=== PATIENT | male | born 1955 | race Caucasian/White ===

== ENCOUNTER 2016-08-15 10:55 | Inpatient (IN) | payer BC, OTHER ==
[2016-08-15 11:52] LABS: PARTIAL THROMB. TIME 30.2 SEC (22-35); PT-INR 1.8
[2016-08-15 11:55] LABS: BLOOD UREA NITROGEN 45 MG/DL (9-20); CALC CORRECTED 9.8 MG/DL (8.4-10.2); CALCIUM 9.7 MG/DL (8.4-10.2); CALCULATED OSMOLALITY 279 MOs/Kg (270-290); CHLORIDE 99 mEq/L (98-107); GLUCOSE 76 MG/DL (70-99); SODIUM LEVEL 139 mEq/L (137-146); TOTAL PROTEIN 7.5 G/DL (6.3-8.2)
[2016-08-15 12:15] LABS: MPV 9.9 fL (7.4-10.4); SEG NEUTROPHIL 80 % (45-76)
[2016-08-15] MEDS ORDERED: NS 1,000 ML IV ONE ×2 (12:16→14:11)
[2016-08-15 12:57] LABS: CPK TOTAL WITH POSSIBLE MB 71 IU/L (55-170)
[2016-08-15] MEDS ORDERED: Pharmacy Review for Metformin - IV Contrast Given SCH (13:00)
--- NOTE | 2016-08-15 13:11 | EDPRACDOC ---
- General Information Chief Complaint: Generalized Weakness Stated Complaint: VOMITING/ RECTAL BLEED Time Seen by Provider: 08/15/16 12:57 Mode of Arrival: Car Home Medications: Home Medications ANUSOL Suppository 1 supp AL BID #10 supp 07/24/16 Allopurinol [Zyloprim] 100 mg PO DAILY 07/24/16 Atorvastatin Calcium [Lipitor] 40 mg PO DAILY 07/24/16 Clopidogrel Bisulfate [Plavix] 75 mg PO DAILY 07/24/16 Docusate Sodium [Colace] 100 mg PO BID #100 cap 07/24/16 Gabapentin [Neurontin] 300 mg PO BID 07/24/16 Hydrocodone Bit/Acetaminophen [[place] 5-325 Tablet] 1 - 2 tabs PO Q6H PRN Lisinopril [Prinivil] 5 mg PO DAILY 07/24/16 Metformin HCl [Metformin HCl ER] 500 mg PO BID 07/24/16 Allergies/Adverse Reactions: Allergies Allergy/AdvReac Type Severity Reaction Status Date / Time tramadol Allergy Nausea/Vomi Verified 07/24/16 21:07 ting - History of Present Illness Onset: 3 WEEKS HPI: PT PRESENTS WITH PROGRESSIVE JAUNDICE, FATIGUE, WEIGHT LOSS, DARK STOOLS, AND EASY BLEEDING. THIS HAS BEEN PROGRESSING OVER THE LAST FEW WEEKS. ED Past Medical History - History Reviewed Yes Nurses notes reviewed and agree except as marked - Patient Medical History Neurological History: Reports: Cerebrovascular Accident Cardiac History: Reports: Hypertension, Hypercholesterolemia Psychological History: Denies: Depression Systemic History: Reports: Diabetes. Denies: Cancer - Social Medical History Smoking Status: Former smoker Lives In: Home EDM Review of Systems - Review of Systems ROS Negative Except as Marked: Yes All systems reviewed and were negative except as marked Constitutional: Fatigue, Weakness, Weight loss. negative: Fever Nose: negative: Congestion Respiratory: negative: Shortness of Breath Cardiovascular: negative: Chest Pain Gastrointestinal: Nausea. negative: Vomiting Integumentary: Other (JAUNDICE) - Physical Exam Constitutional: Alert Oriented to: Time, Person, Place Last recorded Vital Signs: Last Vital Signs Temp 98.5 F 08/15/16 13:04 Pulse 107 08/15/16 13:04 Resp 20 08/15/16 13:04 BP 121/59 L 08/15/16 13:04 Pulse Ox 94 08/15/16 13:04 Oxygen Pulse Oxygen Saturation 94 O2 Device Room Air Oxygen Flow Rate Fraction of Inspired Oxygen ( FIO2) - HEENT Head: negative: Deformity, Laceration Eye Exam: Scleral Icterus Nose: negative: Congestion, Discharge Neck: negative: Limited ROM - Respiratory/Cardiovascular Respiratory: Normal - CTA. negative: Accessory Muscle Use, Diminished, Tachypnea Cardiovascular: Tachycardia. negative: Bradycardia, Irregular - GI Auscultation: Normal Palpation: Enlarged liver Tenderness: Non tender - Integumentary Skin: Warm, Dry, Jaundice - Neurologic Memory Impaired: Normal Motor Function: Normal Mood Description: Anxious, Appropriate Thought: Coherent Perception: Normal - Results 08/15/16 11:30 08/15/16 11:30 WBC 13.8 xk/uL (3.8-10.8) H 08/15/16 11:30 RBC 4.82 xM/uL (4.70-6.10) 08/15/16 11:30 Hgb 13.9 g/dL (14.0-18.0) L 08/15/16 11:30 Hct 42.5 % (42-52) 08/15/16 11:30 MCV 88 fL (80-94) 08/15/16 11:30 MCH 28.9 pg (27-32) 08/15/16 11:30 MCHC 32.8 g/dl (33-36) L 08/15/16 11:30 RDW 15.1 % (11.5-14.5) H 08/15/16 11:30 Plt Count 221 xk/uL (130-400) 08/15/16 11:30 MPV 9.9 fL (7.4-10.4) 08/15/16 11:30 Neut % (Auto) Cancelled 08/15/16 11:30 Lymph % (Auto) Cancelled 08/15/16 11:30 [place] % (Auto) Cancelled 08/15/16 11:30 Eos % (Auto) Cancelled 08/15/16 11:30 Baso % (Auto) Cancelled 08/15/16 11:30 Absolute Neuts (auto) Cancelled 08/15/16 11:30 Absolute Lymphs (auto) Cancelled 08/15/16 11:30 Seg Neuts % (Manual) 80 % (45-76) H 08/15/16 11:30 Band Neutrophils % 3 % (0-5) 08/15/16 11:30 Lymphocytes % (Manual) 12 % (17-44) L 08/15/16 11:30 Monocytes % (Manual) 5 % (0-10) 08/15/16 11:30 Eosinophils % (Manual) 0 % (0-5) 08/15/16 11:30 Absolute Neutrophils 11.45 xk/uL (1.7-8.2) H 08/15/16 11:30 Absolute Lymphocytes 1.66 xk/uL (0.65-4.75) 08/15/16 11:30 Atypical Lymphocytes Few 08/15/16 11:30 Platelet Estimate Norm (NORMAL) 08/15/16 11:30 RBC Morphology 1+ aniso 1+ poik 1+ polychrom 08/15/16 11:30 RBC Morphology 1+ aniso 1+ poik 1+ polychrom 08/15/16 11:30 RBC Morphology 1+ aniso 1+ poik 1+ polychrom 08/15/16 11:30 PT 19.0 SEC (9.2-11.2) H 08/15/16 11:30 INR 1.8 08/15/16 11:30 APTT 30.2 SEC (22-35) 08/15/16 11:30 Sodium 139 mEq/L (137-146) 08/15/16 11:30 Potassium 5.7 mEq/L (3.5-5.1) H 08/15/16 11:30 Chloride 99 mEq/L (98-107) 08/15/16 11:30 Carbon Dioxide 26 mMOL/L (22-33) 08/15/16 11:30 Anion Gap 20 mEq/L (8-16) H 08/15/16 11:30 BUN 45 MG/DL (9-20) H 08/15/16 11:30 Creatinine 1.30 MG/DL (0.66-1.25) H 08/15/16 11:30 Estimated GFR (MDRD) 57 mL/min (>=60) L 08/15/16 11:30 Glucose 76 MG/DL (70-99) 08/15/16 11:30 Calculated Osmolality 279 MOs/Kg (270-290) 08/15/16 11:30 Lactic Acid 2.8 mEq/L (0.7-2.1) H 08/15/16 11:30 Calcium 9.7 MG/DL (8.4-10.2) 08/15/16 11:30 Corrected Calcium 9.8 MG/DL (8.4-10.2) 08/15/16 11:30 Total Bilirubin 14.5 MG/DL (0.2-1.3) H 08/15/16 11:30 AST 405 IU/L (17-59) H 08/15/16 11:30 ALT 256 IU/L (21-72) H 08/15/16 11:30 Alkaline Phosphatase 1140 IU/L (38-126) H 08/15/16 11:30 Ammonia < 9.0 umol/L (9.0-30.0) L 08/15/16 11:30 Creatine Kinase 71 IU/L (55-170) 08/15/16 11:30 Troponin I < 0.01 ng/mL (<.04) 08/15/16 11:30 Total Protein 7.5 G/DL (6.3-8.2) 08/15/16 11:30 Albumin 3.9 G/DL (3.5-5.0) 08/15/16 11:30 Lipase 1487 U/L (23-300) H 08/15/16 11:30 Blood Type B POSITIVE 08/15/16 11:38 Antibody Screen Negative 08/15/16 11:38 Lab Results 08/15/16 08/15/16 08/15/16 11:38 11:30 11:30 WBC RBC Hgb Hct MCV MCH MCHC RDW Plt Count MPV Neut % (Auto) Lymph % (Auto) [place] % (Auto) Eos % (Auto) Baso % (Auto) Absolute Neuts (auto) Absolute Lymphs (auto) Seg Neuts % (Manual) Band Neutrophils % Lymphocytes % (Manual) Monocytes % (Manual) Eosinophils % (Manual) Absolute Neutrophils Absolute Lymphocytes Atypical Lymphocytes Platelet Estimate RBC Morphology PT 19.0 H INR 1.8 APTT 30.2 Sodium Potassium Chloride Carbon Dioxide Anion Gap BUN Creatinine Estimated GFR (MDRD) Glucose Calculated Osmolality Lactic Acid Calcium Corrected Calcium Total Bilirubin AST ALT Alkaline Phosphatase Ammonia Creatine Kinase 71 Troponin I < 0.01 Total Protein Albumin Lipase 1487 H Blood Type B POSITIVE Antibody Screen Negative 08/15/16 08/15/16 08/15/16 11:30 11:30 11:30 WBC 13.8 H RBC 4.82 Hgb 13.9 L Hct 42.5 MCV 88 MCH 28.9 MCHC 32.8 L RDW 15.1 H Plt Count 221 MPV 9.9 Neut % (Auto) Cancelled Lymph % (Auto) Cancelled [place] % (Auto) Cancelled Eos % (Auto) Cancelled Baso % (Auto) Cancelled Absolute Neuts (auto) Cancelled Absolute Lymphs (auto) Cancelled Seg Neuts % (Manual) 80 H Band Neutrophils % 3 Lymphocytes % (Manual) 12 L Monocytes % (Manual) 5 Eosinophils % (Manual) 0 Absolute Neutrophils 11.45 H Absolute Lymphocytes 1.66 Atypical Lymphocytes Few Platelet Estimate Norm RBC Morphology 1+ polychrom PT INR APTT Sodium Potassium Chloride Carbon Dioxide Anion Gap BUN Creatinine Estimated GFR (MDRD) Glucose Calculated Osmolality Lactic Acid 2.8 H Calcium Corrected Calcium Total Bilirubin AST ALT Alkaline Phosphatase Ammonia < 9.0 L Creatine Kinase Troponin I Total Protein Albumin Lipase Blood Type Antibody Screen 08/15/16 11:30 WBC RBC Hgb Hct MCV MCH MCHC RDW Plt Count MPV Neut % (Auto) Lymph % (Auto) [place] % (Auto) Eos % (Auto) Baso % (Auto) Absolute Neuts (auto) Absolute Lymphs (auto) Seg Neuts % (Manual) Band Neutrophils % Lymphocytes % (Manual) Monocytes % (Manual) Eosinophils % (Manual) Absolute Neutrophils Absolute Lymphocytes Atypical Lymphocytes Platelet Estimate RBC Morphology PT INR APTT Sodium 139 Potassium 5.7 H Chloride 99 Carbon Dioxide 26 Anion Gap 20 H BUN 45 H Creatinine 1.30 H Estimated GFR (MDRD) 57 L Glucose 76 Calculated Osmolality 279 Lactic Acid Calcium 9.7 Corrected Calcium 9.8 Total Bilirubin 14.5 H AST 405 H ALT 256 H Alkaline Phosphatase 1140 H Ammonia Creatine Kinase Troponin I Total Protein 7.5 Albumin 3.9 Lipase Blood Type Antibody Screen - Departure Yes I personally saw and evaluated the patient. Disposition: Admit IP To This Hospital Condition: Stable Final Diagnosis: Elevated liver enzymes, Elevated lipase, Liver masses, Jaundice Instructions: Weakness (General) Decision to Admit Time: 15:30 Decision to admit date: 08/15/16 Decision to admit: from ED
--- NOTE | 2016-08-15 14:40 | DIRPT ---
CLINICAL DATA: Abdominal pain. Generalized pain with dark emesis, jaundice and bright red blood per rectum. EXAM: CT ABDOMEN AND PELVIS WITH CONTRAST TECHNIQUE: Multidetector CT imaging of the abdomen and pelvis was performed using the standard protocol following bolus administration of intravenous contrast. CONTRAST: 100 mL Isovue 370 COMPARISON: None. FINDINGS: Lower chest: Clear lung bases. Normal heart size. Hepatobiliary: Numerous subtle hypodense masses throughout the liver most concerning for metastatic disease. Gallbladder is suboptimally visualized and appears decompressed possible cholelithiasis. Pancreas: Normal. Spleen: Normal. Adrenals/Urinary Tract: Normal adrenal glands. Normal kidneys. No urolithiasis or obstructive uropathy. Normal bladder. Stomach/Bowel: No bowel wall thickening or dilatation. No pneumatosis, pneumoperitoneum or portal venous gas. Vascular/Lymphatic: Normal caliber abdominal aorta with atherosclerosis. There is portacaval lymphadenopathy with the largest lymph node measuring 16 mm. Other: No fluid collection or hematoma. Musculoskeletal: No lytic or sclerotic osseous lesion. No acute osseous abnormality. IMPRESSION: 1. Numerous subtle hypodense masses throughout the liver most concerning for metastatic disease. Portacaval lymphadenopathy. 2. Gallbladder is suboptimally visualized and appears decompressed possible cholelithiasis. Electronically Signed By: Uyen Gotti On: 08/15/2016 14:37
[2016-08-15 15:14] LABS: LEUKOCYTES/URINE NEG (NEGATIVE); NITRITE/URINE NEG (NEGATIVE); RBC/URINE 0-2 (0-2); URINE OCCULT BLOOD NEG (NEG/TRACE)
[2016-08-15] MEDS ORDERED: ACETAMINOPHEN 650 MG SUPP PR PRN (16:18)
[2016-08-15] MEDS ORDERED: ACETAMINOPHEN 325 MG/TAB TABLET PO PRN (16:18)
[2016-08-15] MEDS ORDERED: METOCLOPRAMIDE 10 MG/2 ML VIAL IV PRN (16:18)
[2016-08-15] MEDS ORDERED: SIMETHICONE 80 MG TAB PO PRN (16:18)
[2016-08-15] MEDS ORDERED: DOCUSATE-SENNA CONCENTRATE TAB PO PRN (16:18)
[2016-08-15] MEDS ORDERED: BENZONATATE 100 MG PERLES PO PRN (16:18)
[2016-08-15] MEDS ORDERED: ONDANSETRON HCL 4 MG/2 ML VIAL IV PRN (16:18)
[2016-08-15] MEDS ORDERED: TEMAZEPAM 15 MG CAP PO PRN (16:18)
[2016-08-15] MEDS ORDERED: HYDROCODONE 5 MG/ACETAMIN 325 MG TAB PO PRN (16:29)
[2016-08-15] MEDS ORDERED: HYDROCODONE 10 MG/ACETAMIN 325 MG TAB PO PRN (16:38)
[2016-08-15] MEDS ORDERED: NS 1,000 ML IV SCH (17:00)
[2016-08-15] MEDS ORDERED: Vaccine Screening Complete SCH (19:00)
[2016-08-15] MEDS: Docusate Sodium 100 MG CAP PO SCH (21:00)
[2016-08-15] MEDS: GABAPENTIN 300 MG CAP PO SCH (21:00)
--- NOTE | 2016-08-15 22:08 | HISTPHYS ---
- Chief Complaint jaundice, constipation - History of Present Illness Beni Lagos is a 61 year old man who usually sees Dr. Nieto. He presented to his office today complaining of one month of constipation, white or light- colored stools, constipation, and difficulty voiding. He felt as if his abdomen was swelling, but he had actually lost six pounds. He noticed that his left foot and ankle were swelling a bit, but he thought it was due to a diabetic neuropathy. He did not notice that he was turning yellow, but some of his friends and family members did, and urged him to see a doctor. He denied any abdominal pain other than the constipation. He complained of hemorrhoids also, with intermittent rectal bleeding. When he saw Dr. Nieto today, he was referred immediately to the hospital for further evaluation and management. - Medical History Cardiac History: Reports: Hypertension, Hypercholesterolemia. Denies: Coronary Artery Disease, Atrial Fibrillation Respiratory History: Reports: No Significant History, COPD GI/ History: Reports: Renal Disease, Gastroesophageal Reflux, PMH GI Yes/No Other (no EGD or colonoscopy per patient). Denies: Renal Failure, Liver Failure , IBD, Diverticulosis Systemic History: Reports: Diabetes. Denies: Cancer, Anemia Neurological History: Reports: Cerebrovascular Accident (Sep 2014February2015) Psychological History: Denies: Depression, Alcoholism - Surgical History Reports: Other (L carotid endarterectomy) - Medictions/Allergies Allergies tramadol Allergy (Verified 07/24/16 21:07) Nausea/Vomiting Current Medication List: Reviewed Home Medications ANUSOL Suppository 1 supp CO BID #10 supp 07/24/16 Allopurinol [Zyloprim] 100 mg PO DAILY 07/24/16 Atorvastatin Calcium [Lipitor] 40 mg PO DAILY 07/24/16 Clopidogrel Bisulfate [Plavix] 75 mg PO DAILY 07/24/16 Docusate Sodium [Colace] 100 mg PO BID #100 cap 07/24/16 Gabapentin [Neurontin] 300 mg PO BID 07/24/16 Hydrocodone Bit/Acetaminophen [[place] 5-325 Tablet] 1 - 2 tabs PO Q6H PRN Lisinopril [Prinivil] 5 mg PO DAILY 07/24/16 Metformin HCl [Metformin HCl ER] 500 mg PO BID 07/24/16 - Family History Reports: Diabetes (mother brother). Denies: Hypertension, Cancer, Stroke, Cardiac Disorders - Social History Travel Outside of [place] in the Last 3 Months?: No Lives: with Significant Other Smoking Status: Heavy tobacco smoker (5 or more cigarettes/day or daily pipe/ cigar) (1ppd) Social History: Denies: Alcohol Use, Substance Use Disorder - Review of Systems Constitutional: Fatigue, Weakness, Weight loss. negative: Chills, Fever Eyes: No Symptoms Reported, Other (jaundiced) Ears: No Symptoms Reported Nose: No Symptoms Reported Mouth: No Symptoms Reported, Dry Mouth, Poor Dentition Throat/Neck: No Symptoms Reported Respiratory: Cough, Shortness of Breath. negative: Wheezing, Asthma Cardiovascular: Edema (left foot and ankle) Gastrointestinal: Nausea, Constipation, Other (swelling in abdomen, pale colored stools that float). negative: Vomiting, Abdominal Pain Genitourinary: Urgency to urinate. negative: Frequency (decreased urination), Testicular Pain, Flank Pain, Nocturia Neurological: Headache, Weakness, Memory Changes Musculoskeletal:: Osteoarthritis, Swelling Integumentary: Itching Allergic/Immunologic: No Symptoms Reported Hematologic: No Symptoms Reported Endocrine: Weight Loss, Diabetes. negative: Polyuria Psychiatric: No Symptoms Reported - Physical Exam Vital Signs: Initial Vitals Temperature 98.1 F 08/15/16 11:21 Pulse Rate 112 08/15/16 11:21 Respiratory Rate 18 08/15/16 11:21 Blood Pressure 123/58 L 08/15/16 11:21 Pulse Oxygen Saturation 95 08/15/16 11:21 Constitutional: Alert Oriented to: Person, Place - HEENT Head: Normal Eye: Conjunctival Injection (PERRL: EOMI), Scleral Icterus Oropharynx: Membranes Dry. negative: Exudate, Red Tympanic Membrane: Dull ENT EAC: Cerumen Nose: negative: Bleeding, Congestion, Discharge, Deformity Respiratory: Normal - CTA, Diminished, Tachypnea Cardiovascular: Tachycardia (regular rhythm no murmur) - GI Auscultation: Normal Palpation: Enlarged liver, Enlarged spleen, Fluid Wave Tenderness: Non tender Jewell's Sign: Negative Rectal Exam: Heme positive stool Stool: Blood streaked - Musculoskeletal Back: Normal, No Palpable Step-off Extremities: Clubbing, Edema (L foot & ankle). negative: Cyanosis Spine: normal alignment, normal inspection - Integumentary Skin: Warm, Dry Lymphatics: Normal - Neurologic Memory Impaired: Short-term Motor Function: Normal Cranial Nerve: Normal Cerebellar: Normal Mood Description: Normal, Appropriate, Calm Thought: Coherent Perception: Normal - Focused CV Perfusion Exam Vital Signs: Last Vital Signs Temp 97.8 F 08/15/16 21:57 Pulse 100 08/15/16 21:57 Resp 20 08/15/16 21:57 BP 121/57 L 08/15/16 21:57 Pulse Ox 93 08/15/16 21:57 - Lab Results Laboratory Tests 08/15/16 08/15/16 08/15/16 11:30 11:30 11:30 WBC Hgb Hct Plt Count Seg Neuts % (Manual) Band Neutrophils % Lymphocytes % (Manual) Monocytes % (Manual) PT INR APTT Sodium 139 Potassium 5.7 H Chloride 99 Carbon Dioxide 26 Anion Gap 20 H BUN 45 H Creatinine 1.30 H Estimated GFR (MDRD) 57 L Glucose 76 Calculated Osmolality 279 Lactic Acid 2.8 H Calcium 9.7 Corrected Calcium 9.8 Total Bilirubin 14.5 H AST 405 H ALT 256 H Alkaline Phosphatase 1140 H Ammonia < 9.0 L Creatine Kinase Troponin I Total Protein 7.5 Albumin 3.9 Lipase Urine Color Urine Clarity Urine pH Ur Specific [place] Urine Protein Urine Glucose (UA) Urine Ketones Urine Nitrite Urine Bilirubin Urine Urobilinogen Ur Leukocyte Esterase Urine RBC Urine WBC Urine Bacteria Urine Mucus 08/15/16 08/15/16 08/15/16 11:30 11:30 11:30 WBC 13.8 H Hgb 13.9 L Hct 42.5 Plt Count 221 Seg Neuts % (Manual) 80 H Band Neutrophils % 3 Lymphocytes % (Manual) 12 L Monocytes % (Manual) 5 PT 19.0 H INR 1.8 APTT 30.2 Sodium Potassium Chloride Carbon Dioxide Anion Gap BUN Creatinine Estimated GFR (MDRD) Glucose Calculated Osmolality Lactic Acid Calcium Corrected Calcium Total Bilirubin AST ALT Alkaline Phosphatase Ammonia Creatine Kinase 71 Troponin I < 0.01 Total Protein Albumin Lipase 1487 H Urine Color Urine Clarity Urine pH Ur Specific [place] Urine Protein Urine Glucose (UA) Urine Ketones Urine Nitrite Urine Bilirubin Urine Urobilinogen Ur Leukocyte Esterase Urine RBC Urine WBC Urine Bacteria Urine Mucus 08/15/16 08/15/16 08/15/16 14:05 14:45 14:50 WBC Hgb Hct Plt Count Seg Neuts % (Manual) Band Neutrophils % Lymphocytes % (Manual) Monocytes % (Manual) PT INR APTT Sodium Potassium Chloride Carbon Dioxide Anion Gap BUN Creatinine Estimated GFR (MDRD) Glucose Calculated Osmolality Lactic Acid 2.3 H Calcium Corrected Calcium Total Bilirubin AST ALT Alkaline Phosphatase Ammonia Creatine Kinase Troponin I < 0.01 Total Protein Albumin Lipase Urine Color [place] Urine Clarity Clear Urine pH 5.0 Ur Specific [place] 1.005 Urine Protein 1+ H Urine Glucose (UA) Neg Urine Ketones Neg Urine Nitrite Neg Urine Bilirubin 2+ H Urine Urobilinogen 2 H Ur Leukocyte Esterase Neg Urine RBC 0-2 Urine WBC 2-5 H Urine Bacteria Few Urine Mucus Occ - Diagnostic Findings CT ABD/PELVIS: IMPRESSION: 1. Numerous subtle hypodense masses throughout the liver most concerning for metastatic disease. Portacaval lymphadenopathy. 2. Gallbladder is suboptimally visualized and appears decompressed possible cholelithiasis. Electronically Signed By: Uyen Gotti On: 08/15/2016 14:37 - Assessment (1) Liver masses R16.0 - HEPATOMEGALY, NOT ELSEWHERE CLASSIFIED Acute Present on Admission: Yes Admit, begin IV fluid resuscitation, clear liquid diet, anticipate need for GI evaluation with probable EGD & colonoscopy, also will likely need liver biopsy. (2) Jaundice R17 - UNSPECIFIED JAUNDICE Acute Present on Admission: Yes Hydrate gently and recheck in AM, but unlikely to improve. Will consider consultation for liver biopsy. May have cholelithiasis, but no ductal dilatation , so unlikely this is cause of jaundice. Also very little nausea and no vomiting. (3) Elevated liver enzymes R74.8 - ABNORMAL LEVELS OF OTHER SERUM ENZYMES Acute Present on Admission: Yes See notes above. 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 Patient is currently on metformin. Will continue this initially, consider holding it to see if any change occurs. (5) Elevated lipase R74.8 - ABNORMAL LEVELS OF OTHER SERUM ENZYMES Acute Present on Admission: Yes (6) Cerebrovascular disease I67.9 - CEREBROVASCULAR DISEASE, UNSPECIFIED Chronic Present on Admission: Yes No evidence of any acute changes. Case Care Discussed with: Patient, Consultants, Resource Management Critical Care: No Couseling Time (>50% in counseling/coordination): Yes Code: [id number]
[2016-08-16 07:29] LABS: MPV 10.1 fL (7.4-10.4)
[2016-08-16 07:52] LABS: BLOOD UREA NITROGEN 32 MG/DL (9-20); CALC CORRECTED 9.8 MG/DL (8.4-10.2); CALCIUM 8.8 MG/DL (8.4-10.2); CALCULATED OSMOLALITY 270 MOs/Kg (270-290); CHLORIDE 102 mEq/L (98-107); SODIUM LEVEL 138 mEq/L (137-146); TOTAL PROTEIN 5.7 G/DL (6.3-8.2)
[2016-08-16 08:01] LABS: GLUCOSE 45 MG/DL (70-99)
[2016-08-16] MEDS ORDERED: ATORVASTATIN 40 MG TAB PO SCH (09:00)
[2016-08-16] MEDS: D5W/NS 1,000 ML IV SCH ×2 (09:23→16:45)
[2016-08-16] MEDS: Docusate Sodium 100 MG CAP PO SCH ×2 (09:23→21:36)
[2016-08-16] MEDS: GABAPENTIN 300 MG CAP PO SCH ×2 (09:24→21:36)
[2016-08-16] MEDS: LISINOPRIL 5 MG TAB PO SCH (09:25)
--- NOTE | 2016-08-16 15:50 | PCM.CONSGI ---
Consult Date: 08/16/16 Consult Requesting Physician: Aziza Adame - History of Present Illness 61-year-old white male who is a very poor historian. He presented to Dr. Nieto with 1 month history of progressive pale stools, nausea/vomiting, symptoms of fatigue. He was found to be jaundiced. He has been sent to the emergency room for further evaluation. He underwent CT scan of the abdomen and pelvis which showed extensive metastatic lesions in the liver. There is no ductal dilatation. There is no pancreatic masses. The gallbladder does show evidence of cholelithiasis but is contracted. Patient denies having any history of alcohol use. Denies having any previous EGD or colonoscopy. He does complain of nausea and generalized itching. - Past Medical History Cardiac History: Reports: Hypertension, Hypercholesterolemia. Denies: Coronary Artery Disease, Atrial Fibrillation Respiratory History: Reports: COPD GI/ History: Reports: GERD, Renal Disease. Denies: Diverticulosis, Liver Failure, Renal Failure Systemic History: Reports: Diabetes. Denies: Anemia, Cancer Neurological History: Reports: Cerebrovascular Accident (Sep [id number]) Psychological History: Denies: Alcoholism, Depression, Substance Use Disorder - Surgical History Past Surgical History: Reports: No Significant History - Family History Family History: Reports: Diabetes (mother brother), Renal Disease. Denies: Cardiac Disorders, Cancer, Hypertension, Stroke - Allergies Allergies tramadol Allergy (Verified 07/24/16 21:07) Nausea/Vomiting - Medications Home Medications ANUSOL Suppository 1 supp TN BID #10 supp 07/24/16 Allopurinol [Zyloprim] 100 mg PO DAILY 07/24/16 Atorvastatin Calcium [Lipitor] 40 mg PO DAILY 07/24/16 Clopidogrel Bisulfate [Plavix] 75 mg PO DAILY 07/24/16 Docusate Sodium [Colace] 100 mg PO BID #100 cap 07/24/16 Gabapentin [Neurontin] 300 mg PO BID 07/24/16 Hydrocodone Bit/Acetaminophen [Orange 5-325 Tablet] 1 - 2 tabs PO Q6H PRN Lisinopril [Prinivil] 5 mg PO DAILY 07/24/16 Metformin HCl [Metformin HCl ER] 500 mg PO BID 07/24/16 - Social History Lives: with Significant Other Smoking Status: Heavy tobacco smoker (5 or more cigarettes/day or daily pipe/ cigar) (1ppd) Social History: Denies: Alcohol Use, Substance Use Disorder - Exam Vital Signs: Temperature: 97.9 F (08/16/16 14:00) HR: 93 (08/16/16 14:00) RR: 20 (08/16/16 14:00) BP: 107/54 (08/16/16 14:00) Pulse Ox: 95 (08/16/16 14:00) General: Alert, Oriented x3, Cooperative, No acute distress HEENT: Normal, Icteric Sclera, Pallor, Other (No Jaundice) Cardiovascular: Normal S1, Normal S2, Other (No S3 or S4.). negative: No murmurs Gastrointestinal: Soft, Bowel Sounds (normal), Hepatosplenomegaly, Other (LIVER IS HARD, 5 cm below the coastal margin). negative: Tender, Guarding, Rigid Extremities: Normal pulses. negative: Swelling, Edema Skin: Warm,Dry and Intact Neurological: Normal speech, Other (No focal neurologic deficits.) Psych/Mental Status: Normal Affect, Cooperative - Labs Result Diagrams: 08/16/16 06:30 08/16/16 06:30 Laboratory Tests 08/15/16 08/15/16 08/15/16 11:30 11:30 11:30 WBC 13.8 H Hgb 13.9 L Plt Count 221 PT 19.0 H INR 1.8 APTT 30.2 Sodium Potassium Chloride Carbon Dioxide Anion Gap BUN Creatinine Estimated GFR (MDRD) Glucose Lactic Acid Total Bilirubin AST ALT Alkaline Phosphatase Total Protein Albumin Lipase 1487 H Hepatitis A IgM Ab Hep Bs Antigen Hep B Core IgM Ab Hepatitis C Antibody 08/15/16 08/15/16 08/16/16 14:50 14:50 06:30 WBC Hgb Plt Count PT INR APTT Sodium 138 Potassium 5.3 H Chloride 102 Carbon Dioxide 26 Anion Gap 15 BUN 32 H Creatinine 1.00 Estimated GFR (MDRD) > 60 Glucose 45 L* Lactic Acid 2.3 H Total Bilirubin 12.1 H AST 331 H ALT 221 H Alkaline Phosphatase 915 H Total Protein 5.7 L Albumin 3.0 L Lipase Hepatitis A IgM Ab Negative Hep Bs Antigen Negative Hep B Core IgM Ab Negative Hepatitis C Antibody <0.1 08/16/16 06:30 WBC 11.2 H Hgb 12.0 L D Plt Count 186 PT INR APTT Sodium Potassium Chloride Carbon Dioxide Anion Gap BUN Creatinine Estimated GFR (MDRD) Glucose Lactic Acid Total Bilirubin AST ALT Alkaline Phosphatase Total Protein Albumin Lipase Hepatitis A IgM Ab Hep Bs Antigen Hep B Core IgM Ab Hepatitis C Antibody Exam(s): [id number] CT/CT ABD-PELV W/IV CM CLINICAL DATA: Abdominal pain. Generalized pain with dark emesis, jaundice and bright red blood per rectum. EXAM: CT ABDOMEN AND PELVIS WITH CONTRAST TECHNIQUE: Multidetector CT imaging of the abdomen and pelvis was performed using the standard protocol following bolus administration of intravenous contrast. CONTRAST: 100 mL Isovue 370 COMPARISON: None. FINDINGS: Lower chest: Clear lung bases. Normal heart size. Hepatobiliary: Numerous subtle hypodense masses throughout the liver most concerning for metastatic disease. Gallbladder is suboptimally visualized and appears decompressed possible cholelithiasis. Pancreas: Normal. Spleen: Normal. Adrenals/Urinary Tract: Normal adrenal glands. Normal kidneys. No urolithiasis or obstructive uropathy. Normal bladder. Stomach/Bowel: No bowel wall thickening or dilatation. No pneumatosis, pneumoperitoneum or portal venous gas. Vascular/Lymphatic: Normal caliber abdominal aorta with atherosclerosis. There is portacaval lymphadenopathy with the largest lymph node measuring 16 mm. Other: No fluid collection or hematoma. Musculoskeletal: No lytic or sclerotic osseous lesion. No acute osseous abnormality. IMPRESSION: 1. Numerous subtle hypodense masses throughout the liver most concerning for metastatic disease. Portacaval lymphadenopathy. 2. Gallbladder is suboptimally visualized and appears decompressed possible cholelithiasis. 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 agree with proceeding with EGD tomorrow. If it is negative, then would need colonoscopy. I do not believe that he can tolerate colonoscopy preparation at the present time as he has history of nausea vomiting 2. May need a liver biopsy early next week 3. Check CA 19-9, CEA 4. Will follow along. Patient with very poor likely fatal prognosis. He certainly can have underlying liver disease as well given the degree of coagulopathy. We will stop statins. 5. I have discussed the above in detail with the patient. I have also explained the above procedures. 6. He would also need an ultrasound for evaluation of gallbladder and chest x- ray for evaluation of lungs.
--- NOTE | 2016-08-16 16:14 | GENMEDPROG ---
Chief Complaint: elevated liver enzymes, jaundice, hepatomegaly, liver mets, DM-2 Subjective Note: Patient feeling weak, slightly nauseated & depressed. Had BM today- white color with some darker flecks in it. Notes Reviewed: Yes Events from last night noted and discussed with Clinical Staff Current Medication List: Reviewed Currently: Reports: Other (nausea, weakness) - Physical Examination Vital Signs and I&O: Last Vital Signs Temp 97.9 F 08/16/16 14:00 Pulse 93 08/16/16 14:00 Resp 20 08/16/16 14:00 BP 107/54 L 08/16/16 14:00 Pulse Ox 95 08/16/16 14:00 Oxygen Pulse Oxygen Saturation 95 O2 Device Room Air Oxygen Flow Rate Fraction of Inspired Oxygen ( FIO2) Intake & Output 08/13/16 08/14/16 08/15/16 08/16/16 23:59 23:59 23:59 23:59 Intake Total 2600 1922 Balance 2600 1922 Patient's weight 73.652 kg General: Alert, Oriented x3, Cooperative, No acute distress, Weakness, Fatigue HEENT: PERRLA, EOMI, Other (jaundice). negative: Anicteric Sclera Neck: Normal Trachea alignment, Normal inspection, No Masses palpable, JVD Lymphatics: Normal Respiratory: Normal - CTA, Diminished. negative: Wheezes Cardiovascular: Regular rate and rhythm, Normal S1, Normal S2, Good Pedal Pulses GI: Normal bowel sounds, Soft, Non tender, Hepatosplenomegaly, Other (+ ascites) Extremities/Musculoskeletal: Normal pulses. negative: Swelling, Edema Skin: Warm,Dry and Intact, Other (jaundiced, dry & coarse) Neurological: Normal speech, Normal tone, Cranial nerves 3-12 NL Psych/Mental Status: Normal Affect, Cooperative Lab/DI/Studies Reviewed: Laboratory Tests 08/16/16 08/16/16 08/16/16 06:30 06:30 06:30 WBC 11.2 H Hgb 12.0 L D Hct 36.8 L Plt Count 186 Sodium 138 Potassium 5.3 H Chloride 102 Carbon Dioxide 26 Anion Gap 15 BUN 32 H Creatinine 1.00 Estimated GFR (MDRD) > 60 Glucose 45 L* POC Capillary Glucose Calculated Osmolality 270 Corrected Calcium 9.8 Total Bilirubin 12.1 H Direct Bilirubin 10.70 H AST 331 H ALT 221 H Alkaline Phosphatase 915 H Total Protein 5.7 L Albumin 3.0 L Stool Occult Blood 08/16/16 08/16/16 08/16/16 08:58 10:13 11:26 WBC Hgb Hct Plt Count Sodium Potassium Chloride Carbon Dioxide Anion Gap BUN Creatinine Estimated GFR (MDRD) Glucose POC Capillary Glucose 69 L 139 H Calculated Osmolality Corrected Calcium Total Bilirubin Direct Bilirubin AST ALT Alkaline Phosphatase Total Protein Albumin Stool Occult Blood Pos H 08/16/16 16:41 WBC Hgb Hct Plt Count Sodium Potassium Chloride Carbon Dioxide Anion Gap BUN Creatinine Estimated GFR (MDRD) Glucose POC Capillary Glucose 82 Calculated Osmolality Corrected Calcium Total Bilirubin Direct Bilirubin AST ALT Alkaline Phosphatase Total Protein Albumin Stool Occult Blood - Assessment (1) Liver masses Acute R16.0 - HEPATOMEGALY, NOT ELSEWHERE CLASSIFIED Comment/Plan: Continue IV fluid resuscitation, clear liquid diet, anticipate need for GI evaluation with probable EGD & colonoscopy, also will likely need liver biopsy. Change IV fluids to D5NS due to hypoglycemia. (2) Jaundice Acute R17 - UNSPECIFIED JAUNDICE Comment/Plan: Hydrate gently and recheck in AM, but unlikely to improve. Will consider consultation for liver biopsy. May have cholelithiasis, but no ductal dilatation, so unlikely this is cause of jaundice. Also very little nausea and no vomiting. (3) Elevated liver enzymes Acute R74.8 - ABNORMAL LEVELS OF OTHER SERUM ENZYMES Comment/Plan: See notes above. 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 Patient is currently on metformin. Will hold this since patient is having hypoglycemia. (5) Elevated lipase Acute R74.8 - ABNORMAL LEVELS OF OTHER SERUM ENZYMES (6) Cerebrovascular disease Chronic I67.9 - CEREBROVASCULAR DISEASE, UNSPECIFIED Comment/Plan: No evidence of any acute changes. Case Care Discussed with: Patient, Consultants
--- NOTE | 2016-08-16 16:56 | DIRPT ---
CLINICAL DATA: Metastatic liver disease. Rule out lung primary. EXAM: PORTABLE CHEST 1 VIEW COMPARISON: 07/24/2016 FINDINGS: Normal heart size and mediastinal contours. No acute infiltrate or edema. No effusion or pneumothorax. No acute osseous findings. IMPRESSION: No evidence of pulmonary nodule/mass. For the given indication, CT is strongly preferred. Electronically Signed By: Pee Klein M.D. On: 08/16/2016 16:53
[2016-08-16] MEDS ORDERED: PERMETHRIN TOP SCH (21:00)
[2016-08-17] MEDS: D5W/NS 1,000 ML IV SCH ×3 (02:59→23:39)
[2016-08-17] MEDS ORDERED: PHYTONADIONE 5 MG TAB PO SCH (09:00)
--- NOTE | 2016-08-17 09:44 | GENMEDPROG ---
Chief Complaint: elev LFTs, liver mets, jaundice, DM-2, Currently: Reports: Other (nausea, weakness) - Physical Examination Vital Signs and I&O: Last Vital Signs Temp 97.9 F 08/17/16 06:00 Pulse 90 08/17/16 06:00 Resp 20 08/17/16 06:00 BP 126/59 L 08/17/16 06:00 Pulse Ox 96 08/17/16 06:00 Oxygen Pulse Oxygen Saturation 96 O2 Device Room Air Oxygen Flow Rate Fraction of Inspired Oxygen ( FIO2) Intake & Output 08/14/16 08/15/16 08/16/16 08/17/16 23:59 23:59 23:59 23:59 Intake Total 2600 3247 1326 Balance 2600 3247 1326 Patient's weight 73.652 kg 75.041 kg General: Alert, Oriented x3, Cooperative, No acute distress, Weakness, Fatigue HEENT: PERRLA, EOMI, Other (jaundice). negative: Anicteric Sclera Neck: Normal Trachea alignment, Normal inspection, No Masses palpable, JVD Lymphatics: Normal Respiratory: Normal - CTA, Diminished. negative: Wheezes Cardiovascular: Regular rate and rhythm, Normal S1, Normal S2, Good Pedal Pulses GI: Normal bowel sounds, Soft, Non tender, Hepatosplenomegaly, Other (+ ascites) Extremities/Musculoskeletal: Normal pulses. negative: Swelling, Edema Skin: Warm,Dry and Intact, Other (jaundiced, dry & coarse) Neurological: Normal speech, Normal tone, Cranial nerves 3-12 NL Psych/Mental Status: Normal Affect, Cooperative - Assessment (1) Liver masses Acute R16.0 - HEPATOMEGALY, NOT ELSEWHERE CLASSIFIED Comment/Plan: We have decided to hold off on EGD and colonoscopy at the present time due to worsening jaundice, lice infestation and worsening coagulopathy. Proceed with liver biopsy on Friday if possible. We will give him IV vitamin K & transfuse FFP to correct coagulopathy. (2) Jaundice Acute R17 - UNSPECIFIED JAUNDICE Comment/Plan: Hydrate gently and recheck in AM, but unlikely to improve. Will consider consultation for liver biopsy. May have cholelithiasis, but no ductal dilatation, so unlikely this is cause of jaundice. Also very little nausea and no vomiting. (3) Elevated liver enzymes Acute R74.8 - ABNORMAL LEVELS OF OTHER SERUM ENZYMES Comment/Plan: See notes above. (4) Coagulopathy Acute D68.9 - COAGULATION DEFECT, UNSPECIFIED Comment/Plan: We will give him IV vitamin K & transfuse FFP to correct coagulopathy. 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 Patient is currently on metformin. Will hold this since patient is having hypoglycemia. (6) Elevated lipase Acute R74.8 - ABNORMAL LEVELS OF OTHER SERUM ENZYMES (7) Cerebrovascular disease Chronic I67.9 - CEREBROVASCULAR DISEASE, UNSPECIFIED Comment/Plan: No evidence of any acute changes. (8) Lice infested hair Acute B85.2 - PEDICULOSIS, UNSPECIFIED Comment/Plan: Treated with permethrin , but many live bugs still noted in hair. Will retreat with mayonnaise today, and shampoo again tonight. Remove nits. EGD delayed. Case Care Discussed with: Patient, Nursing Staff Education/Counseling Given Regarding: Diagnosis, Treatment, Prognosis
[2016-08-17 10:08] LABS: PT-INR 2.4
[2016-08-17] MEDS ORDERED: PHYTONADIONE 10 MG in NS 50 ML IV ONE (11:26)
[2016-08-17] MEDS: Docusate Sodium 100 MG CAP PO SCH ×2 (11:27→23:38)
[2016-08-17] MEDS: LISINOPRIL 5 MG TAB PO SCH (11:27)
[2016-08-17] MEDS: GABAPENTIN 300 MG CAP PO SCH (11:27)
--- NOTE | 2016-08-17 12:08 | PCM.GIPROG ---
Progress Note (GI) Chief Complaint: EGD was canceled due to lice infestation in the head and in the varela. Patient with worsening jaundice. He also has worsening coagulopathy. He denies having any significant itching except in the scalp. Has been tolerating diet without any problems. - Physical Exam Vital Signs: Temperature: 97.9 F (08/17/16 06:00) HR: 90 (08/17/16 06:00) RR: 20 (08/17/16 06:00) BP: 126/59 (08/17/16 06:00) Pulse Ox: 96 (08/17/16 06:00) General: Alert, Oriented x3 HEENT: Icteric Sclera Respiratory: Diminished Cardiovascular: No murmurs Gastrointestinal: Soft, Other (Hepatomegaly- firm to hard liver) Neurological: Normal speech Result Diagrams: 08/16/16 06:30 08/16/16 06:30 Additional Lab/DI Findings: Laboratory Tests 08/17/16 09:27 PT 24.8 H INR 2.4 - Impression and Plan (1) Liver masses Acute R16.0 - HEPATOMEGALY, NOT ELSEWHERE CLASSIFIED Present on Admission: Yes Comment: We have decided to hold off on EGD and colonoscopy at the present time due to worsening jaundice, lice infestation and worsening coagulopathy. Proceed with liver biopsy on Friday if possible. 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 Patient is currently on metformin. Will hold this since patient is having hypoglycemia. (3) Jaundice Acute R17 - UNSPECIFIED JAUNDICE Present on Admission: Yes Comment: Hydrate gently and recheck in AM, but unlikely to improve. Will consider consultation for liver biopsy. May have cholelithiasis, but no ductal dilatation, so unlikely this is cause of jaundice. Also very little nausea and no vomiting. (4) Cerebrovascular disease Chronic I67.9 - CEREBROVASCULAR DISEASE, UNSPECIFIED Present on Admission: Yes Comment: No evidence of any acute changes. Plan: 1. proceed with liver biopsy on Friday. We will give him vitamin K IV. He may need a transjugular liver biopsy or FFP before biopsy. 2. Patient with very poor likely fatal prognosis since he has metastatic liver cancer. Unknown primary. The into intra or extrahepatic biliary ducts are not dilated, hence ERCP will not be beneficial. He may need hospice care 3. There is no family at the bedside. He apparently has a girlfriend and girlfriend's mother. 4. I have discussed with the nursing staff extensively 5. Hold off on EGD and colonoscopy at the present time due to above-mentioned reasons.
[2016-08-17] MEDS ORDERED: MetFORMIN, EXT REL 500 MG TAB PO SCH (17:00)
[2016-08-18] MEDS ORDERED: DIPHENHYDRAMINE 50 MG/ML VIAL IV ONE (05:40)
[2016-08-18 06:17] LABS: MPV 9.8 fL (7.4-10.4)
[2016-08-18] MEDS ORDERED: NS 500 ML IV ONE (06:31)
[2016-08-18 07:13] LABS: PT-INR 1.2
[2016-08-18 07:20] LABS: BLOOD UREA NITROGEN 14 MG/DL (9-20); CALC CORRECTED 10.1 MG/DL (8.4-10.2); CALCULATED OSMOLALITY 268 MOs/Kg (270-290); CHLORIDE 104 mEq/L (98-107); GLUCOSE 88 MG/DL (70-99); SODIUM LEVEL 139 mEq/L (137-146); TOTAL PROTEIN 5.4 G/DL (6.3-8.2)
[2016-08-18 09:11] LABS: SEG NEUTROPHIL 79 % (45-76)
[2016-08-18] MEDS: Docusate Sodium 100 MG CAP PO SCH ×2 (09:25→20:26)
[2016-08-18] MEDS: LISINOPRIL 5 MG TAB PO SCH (09:25)
[2016-08-18] MEDS: D5W/NS 1,000 ML IV SCH ×3 (10:07→22:12)
--- NOTE | 2016-08-18 12:31 | GENMEDPROG ---
Currently: Reports: Cough, BAI, Abdominal Pain, Other (nausea, weakness) DVT Prophylaxis: Yes (SCDs) - Physical Examination Vital Signs and I&O: Last Vital Signs Temp 98.5 F 08/18/16 10:00 Pulse 95 08/18/16 10:00 Resp 18 08/18/16 10:00 BP 145/65 08/18/16 10:00 Pulse Ox 94 08/18/16 10:00 Oxygen Pulse Oxygen Saturation 94 O2 Device Room Air Oxygen Flow Rate Fraction of Inspired Oxygen ( FIO2) Intake & Output 08/15/16 08/16/16 08/17/16 08/18/16 23:59 23:59 23:59 23:59 Intake Total 2600 3247 3966 1186 Output Total 110 Balance 2600 3247 3966 1076 Patient's weight 73.652 kg 75.041 kg 75.381 kg General: Alert, Oriented x3, Cooperative, No acute distress, Weakness, Fatigue, Other (chronically ill appearing) HEENT: PERRLA, EOMI, Other (jaundice). negative: Anicteric Sclera Neck: Normal Trachea alignment, Normal inspection, No Masses palpable, JVD Lymphatics: Normal Respiratory: Normal - CTA, Diminished. negative: Wheezes Cardiovascular: Regular rate and rhythm, Normal S1, Normal S2, Good Pedal Pulses GI: Normal bowel sounds, Soft, Non tender, Hepatosplenomegaly, Other (+ ascites) Extremities/Musculoskeletal: Normal pulses. negative: Swelling, Edema Skin: Warm,Dry and Intact, Other (jaundiced, dry & coarse) Neurological: Normal speech, Normal tone, Cranial nerves 3-12 NL, Drowsy, Lethargy Psych/Mental Status: Normal Affect, Cooperative, Disoriented, Lethargic Lab/DI/Studies Reviewed: Laboratory Tests 08/18/16 08/18/16 08/18/16 06:05 06:05 06:05 WBC 10.5 Hgb 12.5 L Hct 38.9 L RDW 15.5 H Plt Count 175 Seg Neuts % (Manual) 79 H Band Neutrophils % 3 Lymphocytes % (Manual) 13 L Monocytes % (Manual) 4 Eosinophils % (Manual) 1 PT 12.3 H INR 1.2 Sodium 139 Potassium 3.9 D Chloride 104 Carbon Dioxide 24 Anion Gap 15 BUN 14 Creatinine 0.80 Estimated GFR (MDRD) > 60 Glucose 88 POC Capillary Glucose Calculated Osmolality 268 L Corrected Calcium 10.1 Total Bilirubin 13.1 H AST 287 H ALT 202 H Alkaline Phosphatase 834 H Total Protein 5.4 L Albumin 2.9 L 08/18/16 11:07 WBC Hgb Hct RDW Plt Count Seg Neuts % (Manual) Band Neutrophils % Lymphocytes % (Manual) Monocytes % (Manual) Eosinophils % (Manual) PT INR Sodium Potassium Chloride Carbon Dioxide Anion Gap BUN Creatinine Estimated GFR (MDRD) Glucose POC Capillary Glucose 132 H Calculated Osmolality Corrected Calcium Total Bilirubin AST ALT Alkaline Phosphatase Total Protein Albumin - Assessment (1) Liver masses Acute R16.0 - HEPATOMEGALY, NOT ELSEWHERE CLASSIFIED Comment/Plan: We have decided to hold off on EGD and colonoscopy at the present time due to worsening jaundice, lice infestation and worsening coagulopathy. Proceed with liver biopsy on Friday if possible. We will give him IV vitamin K & transfuse FFP to correct coagulopathy. (2) Jaundice Acute R17 - UNSPECIFIED JAUNDICE Comment/Plan: Hydrate gently and recheck in AM, but unlikely to improve. Will consider consultation for liver biopsy. May have cholelithiasis, but no ductal dilatation, so unlikely this is cause of jaundice. Also very little nausea and no vomiting. (3) Elevated liver enzymes Acute R74.8 - ABNORMAL LEVELS OF OTHER SERUM ENZYMES Comment/Plan: See notes above. (4) Coagulopathy Acute D68.9 - COAGULATION DEFECT, UNSPECIFIED Comment/Plan: Given IV vitamin K & transfused FFP to correct coagulopathy. He did have slight adverse reaction to 1 unit of FFP. Has responded well to PO Benadryl. 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 Patient is currently on metformin. Will hold this since patient is having hypoglycemia. (6) Elevated lipase Acute R74.8 - ABNORMAL LEVELS OF OTHER SERUM ENZYMES (7) Cerebrovascular disease Chronic I67.9 - CEREBROVASCULAR DISEASE, UNSPECIFIED Comment/Plan: No evidence of any acute changes. (8) Lice infested hair Acute B85.2 - PEDICULOSIS, UNSPECIFIED Comment/Plan: Treated with permethrin , but many live bugs still noted in hair. Retreated with mayonnaise yesterday, and shampooed again. Removed nits. EGD delayed. Case Care Discussed with: Patient, Nursing Staff Education/Counseling Given To: Patient Education/Counseling Given Regarding: Diagnosis, Treatment, Prognosis Total Time: 25 min Code: 75367 (12+)
--- NOTE | 2016-08-18 12:37 | PCM.GIPROG ---
Progress Note (GI) Chief Complaint: Patient continues to have progressive jaundice. He had some abdominal pain which has gotten better. On my examination he was sitting in the chair. Denies having any fever or chills. He has a daughter in [place]. Patient did not remember the phone number. He also has a brother in [facility]. It did not remember the number either. Patient also has a son but they do not get along well. He talked to his daughter few weeks ago - Physical Exam Vital Signs: Temperature: 98.5 F (08/18/16 10:00) HR: 95 (08/18/16 10:00) RR: 18 (08/18/16 10:00) BP: 145/65 (08/18/16 10:00) Pulse Ox: 94 (08/18/16 10:00) General: Alert, Oriented x3, Cooperative, No acute distress HEENT: Normal, Icteric Sclera, Other (No Jaundice). negative: Pallor Cardiovascular: Normal S1, Normal S2, Other (No S3 or S4.). negative: No murmurs Gastrointestinal: Soft, Bowel Sounds (Normal), Hepatosplenomegaly (Hard liver), Other (No ascites.). negative: Tender Extremities: Normal pulses. negative: Swelling, Edema Skin: Warm,Dry and Intact Neurological: Normal speech, Other (No focal neurologic deficits.) Psych/Mental Status: Normal Affect, Cooperative Result Diagrams: 08/18/16 06:05 08/18/16 06:05 - Impression and Plan (1) Liver masses Acute R16.0 - HEPATOMEGALY, NOT ELSEWHERE CLASSIFIED Present on Admission: Yes Comment: We have decided to hold off on EGD and colonoscopy at the present time due to worsening jaundice, lice infestation and worsening coagulopathy. Proceed with liver biopsy on Friday if possible. We will give him IV vitamin K & transfuse FFP to correct coagulopathy. 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 Patient is currently on metformin. Will hold this since patient is having hypoglycemia. (3) Jaundice Acute R17 - UNSPECIFIED JAUNDICE Present on Admission: Yes Comment: Hydrate gently and recheck in AM, but unlikely to improve. Will consider consultation for liver biopsy. May have cholelithiasis, but no ductal dilatation, so unlikely this is cause of jaundice. Also very little nausea and no vomiting. (4) Cerebrovascular disease Chronic I67.9 - CEREBROVASCULAR DISEASE, UNSPECIFIED Present on Admission: Yes Comment: No evidence of any acute changes. Plan: 1. proceed with liver biopsy tomorrow. With vitamin K his coagulopathy is better. 2. Await results of CA 19-9 and CEA 3. Add alpha-fetoprotein 4. Will follow along 5. He may eventually need hospice care
[2016-08-19 08:13] LABS: AUTOMATED BASOPHIL 1.6 % (0-2); AUTOMATED EOSINOPHIL 1.9 % (0-5); AUTOMATED LYMPH 7.6 % (17-44); AUTOMATED MONOCYTE 6.6 % (3-10); AUTOMATED NEUTROPHIL 82.3 % (45-76); MPV 9.8 fL (7.4-10.4)
[2016-08-19 08:20] LABS: PT-INR 1.1
[2016-08-19] MEDS: D5W/NS 1,000 ML IV SCH (08:30)
[2016-08-19] MEDS: LISINOPRIL 5 MG TAB PO SCH (08:30)
[2016-08-19] MEDS: Docusate Sodium 100 MG CAP PO SCH ×2 (08:30→19:11)
[2016-08-19 08:32] LABS: BLOOD UREA NITROGEN 12 MG/DL (9-20); CALC CORRECTED 10.3 MG/DL (8.4-10.2); CALCIUM 9.1 MG/DL (8.4-10.2); CALCULATED OSMOLALITY 266 MOs/Kg (270-290); CHLORIDE 104 mEq/L (98-107); GLUCOSE 66 MG/DL (70-99); SODIUM LEVEL 139 mEq/L (137-146); TOTAL PROTEIN 5.7 G/DL (6.3-8.2)
[2016-08-19] MEDS ORDERED: GELATIN 1 SPO SPO TOP ONE (09:34)
[2016-08-19] MEDS ORDERED: FENTANYL 100 MCG/2 ML VIAL ONE (09:34)
[2016-08-19] MEDS ORDERED: NALOXONE 0.4 MG/ML AMPULE ONE (09:34)
[2016-08-19] MEDS ORDERED: MIDAZOLAM 2 MG/2 ML VIAL ONE (09:34)
[2016-08-19] MEDS ORDERED: FLUMAZENIL 0.1 MG/ML INJ 5 ML VIAL IV ONE (09:34)
[2016-08-19] MEDS ORDERED: SODIUM CHLORIDE 0.9% 10 ML FLUSH FLUSH ONE (09:34)
[2016-08-19] MEDS: OXYCODONE HCL 5 MG TABLET PO PRN (12:41)
--- NOTE | 2016-08-19 13:48 | GENMEDPROG ---
Currently: Reports: Cough, BAI, Abdominal Pain, Other (nausea, weakness) DVT Prophylaxis: Yes (SCDs) - Physical Examination Vital Signs and I&O: Last Vital Signs Temp 97.7 F 08/19/16 06:00 Pulse 96 08/19/16 06:00 Resp 18 08/19/16 06:00 BP 119/58 L 08/19/16 06:00 Pulse Ox 99 08/19/16 06:00 Oxygen Pulse Oxygen Saturation 99 O2 Device Room Air Oxygen Flow Rate Fraction of Inspired Oxygen ( FIO2) Intake & Output 08/16/16 08/17/16 08/18/16 08/19/16 23:59 23:59 23:59 23:59 Intake Total 3247 3966 3127 1156 Output Total 610 300 Balance 3247 3966 0850 856 Patient's weight 73.652 kg 75.041 kg 75.381 kg 74.616 kg General: Alert, Oriented x3, Cooperative, No acute distress, Weakness, Fatigue, Other (chronically ill appearing) HEENT: PERRLA, EOMI, Other (jaundice). negative: Anicteric Sclera Neck: Normal Trachea alignment, Normal inspection, No Masses palpable, JVD Lymphatics: Normal Respiratory: Normal - CTA, Diminished. negative: Wheezes Cardiovascular: Regular rate and rhythm, Normal S1, Normal S2, Good Pedal Pulses GI: Normal bowel sounds, Soft, Non tender, Hepatosplenomegaly, Other (+ ascites) Extremities/Musculoskeletal: Normal pulses. negative: Swelling, Edema Skin: Warm,Dry and Intact, Other (jaundiced, dry & coarse) Neurological: Normal speech, Normal tone, Cranial nerves 3-12 NL, Drowsy, Lethargy Psych/Mental Status: Normal Affect, Cooperative, Disoriented, Lethargic - Assessment (1) Liver masses Acute R16.0 - HEPATOMEGALY, NOT ELSEWHERE CLASSIFIED Comment/Plan: We have decided to hold off on EGD and colonoscopy at the present time due to worsening jaundice, lice infestation and worsening coagulopathy. Proceed with liver biopsy on Friday if possible. We will give him IV vitamin K & transfuse FFP to correct coagulopathy. (2) Jaundice Acute R17 - UNSPECIFIED JAUNDICE Comment/Plan: Hydrate gently and recheck in AM, but unlikely to improve. Will consider consultation for liver biopsy. May have cholelithiasis, but no ductal dilatation, so unlikely this is cause of jaundice. Also very little nausea and no vomiting. (3) Elevated liver enzymes Acute R74.8 - ABNORMAL LEVELS OF OTHER SERUM ENZYMES Comment/Plan: See notes above. (4) Coagulopathy Acute D68.9 - COAGULATION DEFECT, UNSPECIFIED Comment/Plan: Given IV vitamin K & transfused FFP to correct coagulopathy. He did have slight adverse reaction to 1 unit of FFP. Has responded well to PO Benadryl. 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 Patient is currently on metformin. Will hold this since patient is having hypoglycemia. (6) Elevated lipase Acute R74.8 - ABNORMAL LEVELS OF OTHER SERUM ENZYMES (7) Cerebrovascular disease Chronic I67.9 - CEREBROVASCULAR DISEASE, UNSPECIFIED Comment/Plan: No evidence of any acute changes. (8) Lice infested hair Acute B85.2 - PEDICULOSIS, UNSPECIFIED Comment/Plan: Treated with permethrin , but many live bugs still noted in hair. Retreated with mayonnaise yesterday, and shampooed again. Removed nits. EGD delayed.
[2016-08-20] MEDS: D5W/NS 1,000 ML IV SCH ×3 (04:26→14:47)
[2016-08-20] MEDS: Docusate Sodium 100 MG CAP PO SCH ×2 (08:28→19:37)
[2016-08-20] MEDS: LISINOPRIL 5 MG TAB PO SCH (08:28)
--- NOTE | 2016-08-20 09:08 | DIRPT ---
CLINICAL DATA: 61-year-old male with a history of liver dysfunction. Has been referred for image guided biopsy. EXAM: ULTRASOUND GUIDED CORE BIOPSY OF LIVER MEDICATIONS: 1.0 mg IV Versed; 50 mcg IV Fentanyl Total Moderate Sedation Time: 17 PROCEDURE: The procedure, risks, benefits, and alternatives were explained to the patient. Questions regarding the procedure were encouraged and answered. The patient understands and consents to the procedure. Ultrasound images of the liver performed with images stored and sent to PACs. The right upper quadrant was prepped with chlorhexidine in a sterile fashion, and a sterile drape was applied covering the operative field. A sterile gown and sterile gloves were used for the procedure. Local anesthesia was provided with 1% Lidocaine. Once the patient is prepped and draped sterilely, the skin and subcutaneous tissues were generously infiltrated with 1% lidocaine for local anesthesia. A small stab incision was performed with an 11 gauge scalpel. Using ultrasound guidance, 17 gauge guide needle was advanced into the liver. Four separate 18 gauge biopsy were performed. Gel-Foam pledgets were then infused with a small amount of saline. The needle was removed and a final image was stored. Patient tolerated the procedure well and remained hemodynamically stable throughout. No complications were encountered and no significant blood loss was encountered. COMPLICATIONS: None. FINDINGS: Ultrasound demonstrates heterogeneous echotexture of the liver. Images during the case demonstrate needle tip within the liver. Final image demonstrates no complicating features. IMPRESSION: Status post ultrasound-guided medical liver biopsy. Tissue specimen sent to pathology for complete histopathologic analysis. Signed, Jacob Randall DO [facility] Electronically Signed By: Jacob Randall D.O. On: 08/20/2016 09:05
--- NOTE | 2016-08-20 12:17 | GENMEDPROG ---
[id number] Examination Vital Signs and I&O: Last Vital Signs Temp 97.8 F 08/20/16 05:10 Pulse 93 08/20/16 05:10 Resp 18 08/20/16 05:10 BP 160/83 08/20/16 05:10 Pulse Ox 95 08/20/16 05:10 Oxygen Pulse Oxygen Saturation 95 O2 Device Room Air Oxygen Flow Rate Fraction of Inspired Oxygen ( FIO2) Intake & Output 08/17/16 08/18/16 08/19/16 08/20/16 23:59 23:59 23:59 23:59 Intake Total 3966 3124 2640 1167 Output Total 610 300 Balance 3966 2514 2340 1167 Patient's weight 75.041 kg 75.381 kg 74.616 kg 74.899 kg General: Oriented x3 (delerious), Cooperative, No acute distress, Weakness, Fatigue, Other (chronically ill appearing, jaundiced) HEENT: PERRLA, EOMI, Other (jaundice). negative: Anicteric Sclera Neck: Normal Trachea alignment, Normal inspection, No Masses palpable, JVD Lymphatics: Normal Respiratory: Normal - CTA, Diminished. negative: Wheezes Cardiovascular: Regular rate and rhythm, Normal S1, Normal S2, Good Pedal Pulses GI: Normal bowel sounds, Soft, Non tender, Hepatosplenomegaly, Other (+ ascites) Extremities/Musculoskeletal: Normal pulses. negative: Swelling, Edema Skin: Warm,Dry and Intact, Other (jaundiced, dry & coarse) Neurological: Normal speech, Normal tone, Cranial nerves 3-12 NL, Drowsy, Lethargy Psych/Mental Status: Normal Affect, Cooperative, Disoriented, Lethargic - Assessment (1) Liver masses Acute R16.0 - HEPATOMEGALY, NOT ELSEWHERE CLASSIFIED Comment/Plan: Patient had liver biopsy today- pathology pending. Remains very weak and debilitated. (2) Jaundice Acute R17 - UNSPECIFIED JAUNDICE Comment/Plan: Remains jaundiced (3) Elevated liver enzymes Acute R74.8 - ABNORMAL LEVELS OF OTHER SERUM ENZYMES Comment/Plan: Bilirubin remains significantly elevated at 13-14. Transaminases are moderately elevated. (4) Coagulopathy Acute D68.9 - COAGULATION DEFECT, UNSPECIFIED Comment/Plan: INR 1.1. 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 (6) Elevated lipase Acute R74.8 - ABNORMAL LEVELS OF OTHER SERUM ENZYMES Comment/Plan: Lipase is slightly elevated. (7) Cerebrovascular disease Chronic I67.9 - CEREBROVASCULAR DISEASE, UNSPECIFIED Comment/Plan: No evidence of any acute changes. (8) Lice infested hair Acute B85.2 - PEDICULOSIS, UNSPECIFIED Comment/Plan: Treated with permethrin. Retreated with mayonnaise yesterday, and shampooed again. Removed nits. Appears better
[2016-08-20] MEDS: OXYCODONE HCL 5 MG TABLET PO PRN (19:37)
[2016-08-21] MEDS: D5W/NS 1,000 ML IV SCH ×3 (00:30→21:56)
[2016-08-21] MEDS: LISINOPRIL 5 MG TAB PO SCH (08:14)
[2016-08-21] MEDS: Docusate Sodium 100 MG CAP PO SCH ×2 (08:14→19:47)
--- NOTE | 2016-08-21 14:46 | GENMEDPROG ---
Chief Complaint: Denies complaint. Odd flat affect. Denies pain currently Notes Reviewed: Yes Events from last night noted and discussed with Clinical Staff Current Medication List: Reviewed Currently: Reports: Cough, BAI, Abdominal Pain, Other (nausea, weakness) DVT Prophylaxis: Yes (SCDs) - Physical Examination Vital Signs and I&O: Last Vital Signs Temp 98 F 08/21/16 13:57 Pulse 100 08/21/16 13:57 Resp 18 08/21/16 13:57 BP 106/54 L 08/21/16 13:57 Pulse Ox 94 08/21/16 13:57 Oxygen Pulse Oxygen Saturation 94 O2 Device Room Air Oxygen Flow Rate Fraction of Inspired Oxygen ( FIO2) Intake & Output 08/18/16 08/19/16 08/20/16 08/21/16 23:59 23:59 23:59 23:59 Intake Total 3124 2640 4412 1950 Output Total 610 300 Balance 2514 2340 4412 1950 Patient's weight 75.381 kg 74.616 kg 74.899 kg 75.353 kg General: Alert, Oriented x3, Cooperative, No acute distress, Weakness, Fatigue, Other (chronically ill appearing) HEENT: PERRLA, EOMI, Other (jaundice). negative: Anicteric Sclera Neck: Normal Trachea alignment, Normal inspection, No Masses palpable, JVD Lymphatics: Normal Respiratory: Normal - CTA, Diminished. negative: Wheezes Cardiovascular: Regular rate and rhythm, Normal S1, Normal S2, Good Pedal Pulses GI: Normal bowel sounds, Soft, Non tender, Hepatosplenomegaly, Other (+ ascites) Extremities/Musculoskeletal: Normal pulses. negative: Swelling, Edema Skin: Warm,Dry and Intact, Other (jaundiced, dry & coarse) Neurological: Normal speech, Normal tone, Cranial nerves 3-12 NL, Drowsy, Lethargy Psych/Mental Status: Normal Affect, Cooperative, Disoriented, Lethargic Lab/DI/Studies Reviewed: Laboratory Results - last 24 hr 08/20/16 08/21/16 16:57 05:35 POC Capillary Glucose 111 H 73 - Assessment (1) Liver masses Acute R16.0 - HEPATOMEGALY, NOT ELSEWHERE CLASSIFIED Comment/Plan: Status post liver biopsy. Pathology pending. CEA and CA 19-9 very elevated. (2) Coagulopathy Acute D68.9 - COAGULATION DEFECT, UNSPECIFIED Comment/Plan: Treated. Did have reaction to FFP. 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 (4) Elevated lipase Acute R74.8 - ABNORMAL LEVELS OF OTHER SERUM ENZYMES Comment/Plan: Last lipase was 533 days ago (5) Elevated liver enzymes Acute R74.8 - ABNORMAL LEVELS OF OTHER SERUM ENZYMES Comment/Plan: Remain moderately elevated. Continue to monitor. (6) Jaundice Acute R17 - UNSPECIFIED JAUNDICE Comment/Plan: Remains jaundiced (7) Lice infested hair Acute B85.2 - PEDICULOSIS, UNSPECIFIED Comment/Plan: Treated with permethrin , but many live bugs still noted in hair. Retreated with mayonnaise yesterday, and shampooed again. Removed nits. Case Care Discussed with: Patient, Nursing Staff, Physical Therapy, Resource Management, Respiratory Therapy, Cardroom Supervisor
--- NOTE | 2016-08-21 16:03 | PCM.GIPROG ---
Progress Note (GI) Chief Complaint: Status post liver biopsy. The biopsy results are pending. He denies having any significant abdominal pain. He denies having any nausea or vomiting. - Physical Exam Vital Signs: Temperature: 98 F (08/21/16 13:57) HR: 100 (08/21/16 13:57) RR: 18 (08/21/16 13:57) BP: 106/54 (08/21/16 13:57) Pulse Ox: 94 (08/21/16 13:57) General: Alert, Oriented x3, Cooperative, No acute distress HEENT: Normal, Icteric Sclera, Pallor, Other (No Jaundice) Cardiovascular: Normal S1, Normal S2, Other (No S3 or S4.). negative: No murmurs Gastrointestinal: Soft, Bowel Sounds (Normal), Hepatosplenomegaly (Liver is hard 5 cm below), Other (No ascites.). negative: Tender Extremities: Normal pulses. negative: Swelling, Edema Skin: Warm,Dry and Intact Neurological: Normal speech, Other (No focal neurologic deficits.) Psych/Mental Status: Normal Affect, Cooperative Result Diagrams: 08/19/16 07:48 08/19/16 07:48 - Impression and Plan (1) Liver masses Acute R16.0 - HEPATOMEGALY, NOT ELSEWHERE CLASSIFIED Present on Admission: Yes Comment: Status post liver biopsy. Pathology pending. CEA and CA 19-9 very elevated. 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 (3) Jaundice Acute R17 - UNSPECIFIED JAUNDICE Present on Admission: Yes Comment: Remains jaundiced (4) Cerebrovascular disease Chronic I67.9 - CEREBROVASCULAR DISEASE, UNSPECIFIED Present on Admission: Yes Comment: No evidence of any acute changes. Plan: 1. follow liver biopsy. 2. May eventually need hospice care 3. Not a candidate for any type of endoscopic procedures at the present time. Even if we find significant GI malignancy, that may not change his management. ERCP is not indicated since there is no ductal dilatation. His jaundice is due to extensive liver metastatic disease. His alpha-fetoprotein was normal.
[2016-08-21 16:26] VITALS: BMI 24.5
[2016-08-22 07:15] LABS: MPV 10.4 fL (7.4-10.4)
[2016-08-22 07:22] LABS: BLOOD UREA NITROGEN 14 MG/DL (9-20); CALC CORRECTED 10.5 MG/DL (8.4-10.2); CALCULATED OSMOLALITY 269 MOs/Kg (270-290); CHLORIDE 108 mEq/L (98-107); GLUCOSE 52 MG/DL (70-99); SODIUM LEVEL 141 mEq/L (137-146); TOTAL PROTEIN 5.1 G/DL (6.3-8.2)
[2016-08-22 07:43] LABS: SEG NEUTROPHIL 71 % (45-76); TOTAL CELL COUNT 100
[2016-08-22] MEDS: D5W/NS 1,000 ML IV SCH ×2 (08:45→19:17)
[2016-08-22] MEDS: LISINOPRIL 5 MG TAB PO SCH (08:45)
[2016-08-22] MEDS: Docusate Sodium 100 MG CAP PO SCH ×2 (08:45→19:17)
[2016-08-22] MEDS ORDERED: Pharmacy Review for Metformin - IV Contrast Given SCH (10:00)
--- NOTE | 2016-08-22 10:08 | GENMEDPROG ---
Chief Complaint: Still feel sick. Weak and tired. Bilirubin remains elevated. Pathology has returned as most consistent with small cell lung cancer. Notes Reviewed: Yes Events from last night noted and discussed with Clinical Staff Current Medication List: Reviewed Currently: Reports: Cough, BAI, Abdominal Pain, Other (nausea, weakness) DVT Prophylaxis: Yes (SCDs) - Physical Examination Vital Signs and I&O: Last Vital Signs Temp 98.1 F 08/22/16 04:31 Pulse 96 08/22/16 04:31 Resp 20 08/22/16 04:31 BP 102/56 L 08/22/16 04:31 Pulse Ox 95 08/22/16 04:31 Oxygen Pulse Oxygen Saturation 95 O2 Device Room Air Oxygen Flow Rate Fraction of Inspired Oxygen ( FIO2) Intake & Output 08/19/16 08/20/16 08/21/16 08/22/16 23:59 23:59 23:59 23:59 Intake Total 2640 4412 3497 980 Output Total 300 Balance 2340 4412 3497 980 Patient's weight 74.616 kg 74.899 kg 75.353 kg 76.34 kg General: Alert, Oriented x3, Cooperative, No acute distress. negative: Well appearing (Chronically ill-appearing) HEENT: Normal, PERRLA, EOMI, Anicteric Sclera Neck: Non-tender, Full range of motion, Normal Trachea alignment, Normal inspection Lymphatics: Normal. negative: Adenopathy Respiratory: Diminished, Rhonchi Cardiovascular: Regular rate and rhythm, No Gallops,Rubs/Murmurs GI: Soft (But distended), Tenderness, Hepatomegaly. negative: No hepatospenomegaly Extremities/Musculoskeletal: Normal pulses. negative: Swelling, Edema Skin: Warm,Dry and Intact, No rashes, No breakdown, No significant lesion Neurological: Normal speech, Strength at 5/5 X4 ext, Normal tone, Cranial nerves 3-12 NL Psych/Mental Status: Appropriate. negative: Normal Affect (Flat depressed) Lab/DI/Studies Reviewed: Laboratory Results - last 24 hr 08/21/16 08/22/16 08/22/16 17:07 05:15 05:15 WBC 10.3 RBC 3.82 L Hgb 11.2 L Hct 35.0 L MCV 92 MCH 29.4 MCHC 32.1 L RDW 16.6 H Plt Count 176 MPV 10.4 Neut % (Auto) Cancelled Lymph % (Auto) Cancelled Dodge % (Auto) Cancelled Eos % (Auto) Cancelled Baso % (Auto) Cancelled Absolute Neuts (auto) Cancelled Absolute Lymphs (auto) Cancelled Seg Neuts % (Manual) 71 Band Neutrophils % 10 H Lymphocytes % (Manual) 7 L Monocytes % (Manual) 7 Eosinophils % (Manual) 4 Basophils % (Manual) 1 Absolute Neutrophils 8.34 H Absolute Lymphocytes 0.72 Platelet Estimate Norm RBC Morphology 1+ aniso Sodium 141 Potassium 4.1 Chloride 108 H Carbon Dioxide 19 L Anion Gap 18 H BUN 14 Creatinine 0.80 Estimated GFR (MDRD) > 60 Glucose 52 L POC Capillary Glucose 71 Calculated Osmolality 269 L Calcium 9.0 Corrected Calcium 10.5 H Total Bilirubin 13.6 H AST 146 H ALT 129 H Alkaline Phosphatase 599 H Total Protein 5.1 L Albumin 2.5 L Lipase 458 H 08/22/16 08/22/16 05:33 06:18 WBC RBC Hgb Hct MCV MCH MCHC RDW Plt Count MPV Neut % (Auto) Lymph % (Auto) Dodge % (Auto) Eos % (Auto) Baso % (Auto) Absolute Neuts (auto) Absolute Lymphs (auto) Seg Neuts % (Manual) Band Neutrophils % Lymphocytes % (Manual) Monocytes % (Manual) Eosinophils % (Manual) Basophils % (Manual) Absolute Neutrophils Absolute Lymphocytes Platelet Estimate RBC Morphology Sodium Potassium Chloride Carbon Dioxide Anion Gap BUN Creatinine Estimated GFR (MDRD) Glucose POC Capillary Glucose 59 L 71 Calculated Osmolality Calcium Corrected Calcium Total Bilirubin AST ALT Alkaline Phosphatase Total Protein Albumin Lipase - Assessment (1) Liver masses Acute R16.0 - HEPATOMEGALY, NOT ELSEWHERE CLASSIFIED Comment/Plan: Pathology with neuroendocrine tumor most consistent with small cell lung cancer. CEA and CA 19-[address] check [address] of chest with contrast to evaluate for lung masses. None were noted on chest x-ray. Have discussed case with Dr. Bishop who will see in consultation. (2) Coagulopathy Acute D68.9 - COAGULATION DEFECT, UNSPECIFIED Comment/Plan: INR 1.1. 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 (4) Elevated liver enzymes Acute R74.8 - ABNORMAL LEVELS OF OTHER SERUM ENZYMES Comment/Plan: Bilirubin remains significantly elevated at 13-14. Transaminases are moderately elevated. (5) Elevated lipase Acute R74.8 - ABNORMAL LEVELS OF OTHER SERUM ENZYMES Comment/Plan: Lipase is slightly elevated. (6) Jaundice Acute R17 - UNSPECIFIED JAUNDICE Comment/Plan: Remains jaundiced (7) Lice infested hair Acute B85.2 - PEDICULOSIS, UNSPECIFIED Comment/Plan: Treated with permethrin. Retreated with mayonnaise yesterday, and shampooed again. Removed nits. Appears better Case Care Discussed with: Patient (Discussed with patient at length. Notified him that we would have Oncology see him in consultation) Education/Counseling Given To: Patient Education/Counseling Given Regarding: Diagnosis
--- NOTE | 2016-08-22 12:56 | DIRPT ---
CLINICAL DATA: Recent liver biopsy revealed possible lung cancer. Rule out lung mass. EXAM: CT CHEST WITH CONTRAST TECHNIQUE: Multidetector CT imaging of the chest was performed during intravenous contrast administration. CONTRAST: 80 mL Isovue 370 IV COMPARISON: CT abdomen pelvis 08/15/2016 FINDINGS: 12 mm nodule in the right medial lung base. Surrounding small nodularity is present in the adjacent lung. 12 mm right hilar lymph node. 8 mm subcarinal node. 11 mm precarinal node. Internal mammary lymph node on the right measures 10.7 mm adjacent to the pericardium. Additional lymph node lateral to the internal mammary artery on the right measures 13 x 18 mm. Coronary calcification. No other lung nodules identified. Heart size within normal limits. No pericardial effusion. Thoracic aorta normal in caliber. Negative for pleural effusion. Negative for pneumonia. Negative for thoracic spine fracture. No lytic bone lesion identified. Heterogeneous bone density without definite metastatic disease in the spine. Hepatomegaly. Subtle liver lesions are better seen on the prior study. Interval development of moderate ascites in the right upper quadrant and left upper quadrant which was not present previously. Mild to moderate hiatal hernia. IMPRESSION: 12 mm nodule right lower lobe medially with adjacent lung nodularity. Given the biopsy findings, this may represent carcinoma of the lung. There is mild mediastinal and right hilar adenopathy which could be reactive or malignant. PET scanning will be helpful for further evaluation to determine if this hypermetabolic and for staging Internal mammary lymph nodes are enlarged and are most consistent with metastatic disease Hepatomegaly with interval development of ascites. Electronically Signed By: Wimler Burr M.D. On: 08/22/2016 12:53
[2016-08-22] MEDS: OXYCODONE HCL 5 MG TABLET PO PRN (19:26)
--- NOTE | 2016-08-22 23:22 | PMOCONSULT ---
Date of Service:: 08/22/16 Medical Oncology Consultation: HISTORY OF PRESENT ILLNESS: The patient is a 61-year-old gentleman who I was asked to consult upon for newly metastatic disease to his liver. Approximately 2-3 weeks ago, the patient went to his primary care physician to have his severe hemorrhoids evaluated. While at that visit, the patient was found to be profoundly jaundiced. After speaking with the patient further about his recent history, the patient also complained about having brown-colored urine. Due to everything being very worrisome for liver/biliary problems, the patient was strongly encouraged to come into the emergency room for further evaluation. After presenting to the ER, liver function studies were done which came back profoundly abnormal. His total bilirubin came back elevated at 14.5; his AST came back elevated at 405; his ALT came back elevated to 156; his alkaline phosphatase came back elevated at 1140. Based upon these abnormal labs, the patient underwent a CT scan of his abdomen/pelvis. This study revealed subtle hypodense masses dispersed throughout his entire liver which were worrisome for metastatic disease. The patient was ultimately admitted to begin a workup to explain his liver problems. Two days ago, the patient underwent a random liver biopsy, whose pathology unfortunately come back consistent with small-cell carcinoma. Based upon this finding, the patient underwent a chest CT today, which showed a small, but noticeable, mass in his right middle lobe. Furthermore, there was right hilar, mediastinal and internal mammary lymphadenopathy appreciated that was worrisome for metastatic disease. This CT scan also showed a moderate degree of ascites around his liver, which was not seen on his abdominal CT scan just done a few days prior. According to the patient, he has lost approximately 30 lb within the past 3 months. He also complains of bilateral lower quadrant pain. The patient admits to smoking as much as 2-1/2 packs cigarettes a day for the past 39 years. He denies baseline shortness of breath or hemoptysis. PAST MEDICAL HISTORY: Diabetes, hypertension, gout, cerebrovascular disease, hypercholesterolemia PAST SURGICAL HISTORY: Cervical spine surgery CURRENT MEDICATIONS: ANUSOL Suppository 1 supp PA BID #10 supp 07/24/16 Allopurinol Zyloprim 100 mg PO DAILY 07/24/16 Atorvastatin Calcium Lipitor 40 mg PO DAILY 07/24/16 Clopidogrel Bisulfate Plavix 75 mg PO DAILY 07/24/16 Docusate Sodium Colace 100 mg PO BID #100 cap 07/24/16 Gabapentin Neurontin 300 mg PO BID 07/24/16 Hydrocodone Bit/Acetaminophen [place] 5-325 Tablet 1 - 2 tabs PO Q6H PRN 07/24/16 Lisinopril Prinivil 5 mg PO DAILY 07/24/16 Metformin HCl Metformin HCl ER 500 mg PO BID 07/24/16 ALLERGIES: Tramadol causes nausea and vomiting FAMILY HISTORY: His mother from complications of diabetes and congestive heart failure. He does not know how his father . He has 1 brother who is in poor health with diabetes and hypertension. There is no immediate or distant family history of cancer. SOCIAL HISTORY: The patient was born and raised just outside of [place], [place]. He currently lives in the [facility] with a couple of friends. He has 2 children and 1 grandchild. He is . 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 His prominent smoking history is as mentioned per HPI. He denies a history of alcoholism. 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 PULMONARY: The patient denies a productive cough, hemoptysis or baseline shortness of breath. CARDIAC: The patient denies angina, heart palpitations, or heart failure issues. GI: The patient has nausea and vomiting, intermittent bright red blood per rectum, and a 30 lb weight loss over the past few months. : The patient denies hematuria, dysuria, or increased urinary frequency. However he has brown/dark-colored urine. MUSCULOSKELETAL: The patient has had right shoulder/arm stiffness for the past few months. ENDOCRINE: The patient has diabetes and hypercholesterolemia. PSYCHIATRIC: The patient has an occasionally depressed affect. DERMATOLOGIC: The patient denies petechia, purpura, but has noticed his jaundice colored skin. CONSTITUTION: The patient has occasional fevers and night sweats. He has a decreased energy level. PHYSICAL EXAMINATION: Vital signs include a temperature of 98.3, pulse 99, respirations 20, blood pressure 133/64 GENERAL: The patient is alert and oriented x3; a weak appearing gentleman who appears noticeably jaundiced. HEENT EXAM: Clear oropharynx with no exudate or lesions appreciated. LUNG EXAM: Clear to auscultation bilaterally. CARDIAC EXAM: Regular rate and rhythm. No murmurs, rubs, or gallops. ABDOMINAL EXAM: Soft, nontender and nondistended; but with liver palpable multiple cm below right costal margin. EXTREMITY EXAM: No clubbing, cyanosis, or edema. LYMPH NODE SURVEY: No palpable cervical, supraclavicular, axillary, or inguinal lymphadenopathy. NEUROLOGIC EXAM: Cranial nerves II-XII and cerebellar functions are grossly intact. SKIN EXAM: No petechiae, purpura or other abnormal skin lesions are appreciated. ASSESSMENT AND PLAN: A 61-year-old gentleman who unfortunately appears to have extensive stage small cell lung cancer, which includes widespread liver metastasis. When reviewing his CT scan with radiology, it appears his liver is inundated with cancer to where at least 80% of it is involved. At the bedside this evening, I had a very candid, difficult discussion with the patient. Usually, I would consider palliative chemotherapy in patients with extensive stage small cell lung cancer to keep their disease under control while maintaining their quality of life. This gentleman's disease is so much more extensive to where I do not even believe giving palliative chemotherapy would make a palpable difference in his immediate quality or quantity of life. Furthermore, with his elevated liver enzymes, his liver's ability to detoxify certain chemotherapy agents, such as etoposide, is essentially impossible. Most of my conversation today was spent explaining to him his grave prognosis, as well as focusing on doing whatever necessary to maximize his quality of life for the time he has left. I did tell him his life expectancy will likely not extend beyond the next 4-6 weeks. Based upon this, I encouraged hospice care for him. Although the patient understands the seriousness of everything that was discussed with him, he needs time to process this information. Understandably, he is emotionally distraught by what was discussed. I did offer pastoral services to come by to talk to him, for which he declined. However, I did tell the nursing staff to check on him periodically to make sure he is doing okay, particularly as it appears no one will visit him for the rest of this evening. I will touch base with him tomorrow to see how he is doing and to see if he has given more thought about considering hospice care. Although extremely despondent, the patient understands all the plans discussed at the bedside this evening and is in agreement with them.
[2016-08-23] MEDS: D5W/NS 1,000 ML IV SCH ×3 (05:30→16:46)
[2016-08-23 05:58] VITALS: TEMP 97.1
[2016-08-23] MEDS: Docusate Sodium 100 MG CAP PO SCH (09:26)
[2016-08-23] MEDS: LISINOPRIL 5 MG TAB PO SCH (09:26)
[2016-08-23] MEDS: LACTULOSE 20 GM/30 ML ORAL SOLN PO SCH ×4 (12:55→16:44)
[2016-08-23] MEDS ORDERED: DEXAMETHASONE 4 MG/ML VIAL IV SCH (14:00)
--- NOTE | 2016-08-23 14:18 | PCM.CCPN2 ---
Oncology/Hematology Progress Note: HISTORY OF PRESENT ILLNESS: This is a 61-year-old gentleman with newly diagnosed small cell lung lung cancer with metastasis to his liver. 80% of his liver is already involved. Due to the extent of his disease and his elevated liver function and bilirubin, we are unable to give him palliative chemotherapy. I was asked to see the patient for symptom management and a goals of care discussion. He is clearly distraught over his poor prognosis. He asked me to call his fiancee so that she could call his brother and daughter to let them know that he may only have a few weeks left. We discussed code status and he has decided to be a DNR. We also discussed hospice and he is in favor of this option. Due to his limited prognosis and symptoms, he may be eligible for the hospice house. He feels very constipated and is having pain, especially in his right upper and lower quadrant. PHYSICAL EXAMINATION: VITALS: T-97.1, P-93, R-20, BP-104/56, Oxygen saturation- 94%RA.GENERAL: Frail and jaundice appearing, in mild distress. HEENT: atraumatic normocephalic. Oropharynx is clear. Neck is supple. No lymphadenopathy. Sclera are icteric. LUNGS: Clear to auscultation bilaterally. CARDIOVASCULAR: Regular rate and rhythm, no murmurs, rubs, or gallops. ABDOMEN: Distended and firm with hepatosplenomegaly. LYMPH NODE SURVEY: No cervical, supraclavicular, axillary, or inguinal lymphadenopathy palpated. EXTREMITIES: Swelling in right arm from an IV infiltration. NEURO: Grossly intact. LABORATORY DATA: Laboratory Last Values WBC 10.3 xk/uL (3.8-10.8) 08/22/16 05:15 RBC 3.82 xM/uL (4.70-6.10) L 08/22/16 05:15 Hgb 11.2 g/dL (14.0-18.0) L 08/22/16 05:15 Hct 35.0 % (42-52) L 08/22/16 05:15 MCV 92 fL (80-94) 08/22/16 05:15 MCH 29.4 pg (27-32) 08/22/16 05:15 MCHC 32.1 g/dl (33-36) L 08/22/16 05:15 RDW 16.6 % (11.5-14.5) H 08/22/16 05:15 Plt Count 176 xk/uL (130-400) 08/22/16 05:15 MPV 10.4 fL (7.4-10.4) 08/22/16 05:15 Neut % (Auto) 82.3 % (45-76) H 08/19/16 07:48 Lymph % (Auto) 7.6 % (17-44) L 08/19/16 07:48 [place] % (Auto) 6.6 % (3-10) 08/19/16 07:48 Eos % (Auto) 1.9 % (0-5) 08/19/16 07:48 Baso % (Auto) 1.6 % (0-2) 08/19/16 07:48 Absolute Neuts (auto) 9.27 xk/uL (1.7-8.2) H 08/19/16 07:48 Absolute Lymphs (auto) 0.79 xk/uL (0.65-4.75) 08/19/16 07:48 Seg Neuts % (Manual) 71 % (45-76) 08/22/16 05:15 Band Neutrophils % 10 % (0-5) H 08/22/16 05:15 Lymphocytes % (Manual) 7 % (17-44) L 08/22/16 05:15 Monocytes % (Manual) 7 % (0-10) 08/22/16 05:15 Eosinophils % (Manual) 4 % (0-5) 08/22/16 05:15 Basophils % (Manual) 1 % (0-2) 08/22/16 05:15 Absolute Neutrophils 8.34 xk/uL (1.7-8.2) H 08/22/16 05:15 Absolute Lymphocytes 0.72 xk/uL (0.65-4.75) 08/22/16 05:15 Atypical Lymphocytes Few 08/15/16 11:30 Platelet Estimate Norm (NORMAL) 08/22/16 05:15 RBC Morphology 1+ aniso 08/22/16 05:15 PT 11.5 SEC (9.2-11.2) H 08/19/16 07:48 INR 1.1 08/19/16 07:48 APTT 30.2 SEC (22-35) 08/15/16 11:30 Sodium 141 mEq/L (137-146) 08/22/16 05:15 Potassium 4.1 mEq/L (3.5-5.1) 08/22/16 05:15 Chloride 108 mEq/L (98-107) H 08/22/16 05:15 Carbon Dioxide 19 mMOL/L (22-33) L 08/22/16 05:15 Anion Gap 18 mEq/L (8-16) H 08/22/16 05:15 BUN 14 MG/DL (9-20) 08/22/16 05:15 Creatinine 0.80 MG/DL (0.66-1.25) 08/22/16 05:15 Estimated GFR (MDRD) > 60 mL/min (>=60) 08/22/16 05:15 Glucose 52 MG/DL (70-99) L 08/22/16 05:15 POC Capillary Glucose 131 MG/DL (70-99) H 08/23/16 14:36 Calculated Osmolality 269 MOs/Kg (270-290) L 08/22/16 05:15 Lactic Acid 2.3 mEq/L (0.7-2.1) H 08/15/16 14:50 Calcium 9.0 MG/DL (8.4-10.2) 08/22/16 05:15 Corrected Calcium 10.5 MG/DL (8.4-10.2) H 08/22/16 05:15 Magnesium 1.60 MG/DL (1.6-2.3) 08/18/16 06:05 Total Bilirubin 13.6 MG/DL (0.2-1.3) H 08/22/16 05:15 Direct Bilirubin 10.70 MG/DL (0.00-0.60) H 08/16/16 06:30 AST 146 IU/L (17-59) H 08/22/16 05:15 ALT 129 IU/L (21-72) H 08/22/16 05:15 Alkaline Phosphatase 599 IU/L (38-126) H 08/22/16 05:15 Ammonia < 9.0 umol/L (9.0-30.0) L 08/15/16 11:30 Creatine Kinase 71 IU/L (55-170) 08/15/16 11:30 Troponin I < 0.01 ng/mL (<.04) 08/15/16 14:05 Total Protein 5.1 G/DL (6.3-8.2) L 08/22/16 05:15 Albumin 2.5 G/DL (3.5-5.0) L 08/22/16 05:15 Lipase 458 U/L (23-300) H 08/22/16 05:15 Tumor Marker AFP 3.4 ng/mL (0.0-8.3) 08/19/16 07:48 Carcinoembryonic Ag 17.4 ng/mL (0.0-4.7) H 08/17/16 09:27 CA 19-9 Antigen 1484 U/mL (0-35) H 08/17/16 09:27 Urine Color Felicitas 08/15/16 14:45 Urine Clarity Clear 08/15/16 14:45 Urine pH 5.0 (5.0-8.0) 08/15/16 14:45 Ur Specific [place] 1.005 (1.003-1.035) 08/15/16 14:45 Urine Protein 1+ (NEG/TRACE) H 08/15/16 14:45 Urine Glucose (UA) Neg (NEGATIVE) 08/15/16 14:45 Urine Ketones Neg (NEGATIVE) 08/15/16 14:45 Urine Occult Blood Neg (NEG/TRACE) 08/15/16 14:45 Urine Nitrite Neg (NEGATIVE) 08/15/16 14:45 Urine Bilirubin 2+ (NEGATIVE) H 08/15/16 14:45 Urine Urobilinogen 2 MG/DL (0-1) H 08/15/16 14:45 Ur Leukocyte Esterase Neg (NEGATIVE) 08/15/16 14:45 Urine RBC 0-2 (0-2) 08/15/16 14:45 Urine WBC 2-5 (0-2) H 08/15/16 14:45 Urine Bacteria Few (NEG/FEW) 08/15/16 14:45 Hyaline Casts 0-2 (0-2) 08/15/16 14:45 Urine Mucus Occ (NEG/OCC) 08/15/16 14:45 Stool Occult Blood Pos (NEGATIVE) H 08/18/16 15:30 Hepatitis A IgM Ab Negative (Negative) 08/15/16 14:50 Hep Bs Antigen Negative (Negative) 08/15/16 14:50 Hep B Core IgM Ab Negative (Negative) 08/15/16 14:50 Hepatitis C Antibody <0.1 s/co ratio (0.0-0.9) 08/15/16 14:50 Blood Type B POSITIVE 08/15/16 11:38 Antibody Screen Negative 08/15/16 11:38 A&P: This is a 61-year-old gentleman with small cell lung cancer with metastasis to his liver. The patient has a very poor prognosis and most likely has less than 2 weeks to live. I was very honest in giving this information to the patient. I made him a DNR per his request after our discussion. I am starting him on dexamethasone 4 mg t.i.d. to help with the edema around his liver metastasis. He is also receiving lactulose for constipation. I have notified the hospice nurse who will meet with the patient once his fiancee is here. I have also spoken to the patient 's fiancee on the phone who really did not have much information about his disease. She is to call me when she arrived on the floor. My goal is to send the patient to the hospice house either for symptom management or in the residential unit. Please call with any questions or concerns.
--- NOTE | 2016-08-23 14:26 | GENMEDPROG ---
Chief Complaint: Complains of severe constipation. No chest pain or shortness of breath. Agrees to DNR. Agrees to talk with hospice Notes Reviewed: Yes Events from last night noted and discussed with Clinical Staff Current Medication List: Reviewed Currently: Reports: Cough, BAI, Abdominal Pain, Other (nausea, weakness) DVT Prophylaxis: Yes (SCDs) - Physical Examination Vital Signs and I&O: Last Vital Signs Temp 97.1 F L 08/23/16 05:58 Pulse 99 08/23/16 08:50 Resp 22 08/23/16 08:50 BP 124/58 L 08/23/16 08:50 Pulse Ox 94 08/23/16 08:50 Oxygen Pulse Oxygen Saturation 94 O2 Device Room Air Oxygen Flow Rate Fraction of Inspired Oxygen ( FIO2) Intake & Output 08/20/16 08/21/16 08/22/16 08/23/16 23:59 23:59 23:59 23:59 Intake Total 4412 3497 2806 709 Balance 4412 3497 2806 709 Patient's weight 74.899 kg 75.353 kg 76.34 kg 76.249 kg General: Alert, Oriented x3, Cooperative, No acute distress. negative: Well appearing (Chronically ill-appearing) HEENT: Normal, PERRLA, EOMI, Anicteric Sclera Neck: Non-tender, Full range of motion, Normal Trachea alignment, Normal inspection Lymphatics: Normal. negative: Adenopathy Respiratory: Diminished, Rhonchi Cardiovascular: Regular rate and rhythm, No Gallops,Rubs/Murmurs GI: Soft (But distended), Tenderness, Hepatomegaly. negative: No hepatospenomegaly Extremities/Musculoskeletal: Normal pulses. negative: Swelling, Edema Skin: Warm,Dry and Intact, No rashes, No breakdown, No significant lesion Neurological: Normal speech, Strength at 5/5 X4 ext, Normal tone, Cranial nerves 3-12 NL Psych/Mental Status: Appropriate. negative: Normal Affect (Flat depressed) Lab/DI/Studies Reviewed: Laboratory Results - last 24 hr 08/22/16 08/23/16 15:38 05:25 POC Capillary Glucose 81 62 L - Assessment (1) Liver masses Acute R16.0 - HEPATOMEGALY, NOT ELSEWHERE CLASSIFIED Comment/Plan: Pathology with neuroendocrine tumor most consistent with small cell lung cancer. CEA and CA 19-[address] confirmed lung mass. Dr. Bishop has recommended comfort care and hospice. We both feel the patient is too debilitated to tolerate palliative chemotherapy (2) Coagulopathy Acute D68.9 - COAGULATION DEFECT, UNSPECIFIED Comment/Plan: INR 1.1. 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 (4) Elevated liver enzymes Acute R74.8 - ABNORMAL LEVELS OF OTHER SERUM ENZYMES Comment/Plan: Bilirubin remains significantly elevated at 13-14. Transaminases are moderately elevated. (5) Elevated lipase Acute R74.8 - ABNORMAL LEVELS OF OTHER SERUM ENZYMES Comment/Plan: Lipase is slightly elevated. (6) Jaundice Acute R17 - UNSPECIFIED JAUNDICE Comment/Plan: Remains jaundiced (7) Lice infested hair Acute B85.2 - PEDICULOSIS, UNSPECIFIED Comment/Plan: Treated with permethrin. Retreated with mayonnaise yesterday, and shampooed again. Removed nits. Appears better Case Care Discussed with: Patient
[2016-08-23 14:41] VITALS: BP 142/85; PULSE 109
[2016-08-23] MEDS: OXYCODONE HCL 5 MG TABLET PO PRN (14:49)
[2016-08-23] MEDS ORDERED: MORPHINE 2 MG/ML INJECTION IV ONE (16:54)
--- NOTE | 2016-08-23 17:00 | PCM.DCS92 ---
- Final/Secondary Discharge Diagnosis (1) Small cell lung cancer Acute Present on Admission: Yes unspecified laterality C34.90 - Malignant neoplasm of unspecified part of unspecified bronchus or lung Comment: Biopsy confirms small cell lung cancer. Has extensive metastatic disease and near total replacement of his liver with tumor. Oncology has met with patient and feel he is too sick to tolerate even palliative chemotherapy. Hospice has seen in consultation and patient is being transferred to hospice house for comfort care (2) Liver masses Acute R16.0 - HEPATOMEGALY, NOT ELSEWHERE CLASSIFIED Present on Admission: Yes Comment: Pathology with neuroendocrine tumor most consistent with small cell lung cancer. CEA and CA 19-[address] very elevated[address] Will check CT of chest with contrast to evaluate for lung masses. None were noted on chest x-ray. Have discussed case with Dr. Bishop who will see in consultation. (3) Coagulopathy Acute D68.9 - COAGULATION DEFECT, UNSPECIFIED Present on Admission: Yes Comment: INR 1.1. 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 (5) Elevated liver enzymes Acute R74.8 - ABNORMAL LEVELS OF OTHER SERUM ENZYMES Present on Admission: Yes Comment: Bilirubin remains significantly elevated at 13-14. Transaminases are moderately elevated. (6) Elevated lipase Acute R74.8 - ABNORMAL LEVELS OF OTHER SERUM ENZYMES Present on Admission: Yes Comment: Lipase is slightly elevated. (7) Jaundice Acute R17 - UNSPECIFIED JAUNDICE Present on Admission: Yes Comment: Remains jaundiced (8) Lice infested hair Acute B85.2 - PEDICULOSIS, UNSPECIFIED Comment: Treated with permethrin. Retreated with mayonnaise yesterday, and shampooed again. Removed nits. Appears better Discharge Disposition: Hospice Care Inpatient Discharge Condition: Stable Cognitive Discharge Status: Unimpaired Fuctional Discharge Status: Independent Home Medications / New Prescriptions: No Action Hydrocodone Bit/Acetaminophen [[place] 5-325 Tablet] 1 - 2 tabs PO Q6H PRN PRN Reason: Pain Metformin HCl [Metformin HCl ER] 500 mg PO BID Lisinopril [Prinivil] 5 mg PO DAILY Gabapentin [Neurontin] 300 mg PO BID Clopidogrel Bisulfate [Plavix] 75 mg PO DAILY Atorvastatin Calcium [Lipitor] 40 mg PO DAILY Allopurinol [Zyloprim] 100 mg PO DAILY ANUSOL Suppository 1 supp OK BID #10 supp Docusate Sodium [Colace] 100 mg PO BID #100 cap O2 Device: Room Air Diet at Discharge: As Tolerated Activity: As Tolerated - DC Summary Notes Hospital Course Note:: Discharge summary on patient named RILEY LAGOS admitted to [facility] on 08/15/16 by Aziza Adame MD. Date of discharge is []. Mr. Lagos is an unfortunate 61-year-old white male who was referred to the hospital for new onset jaundice. He was found to have a bilirubin of 14 and extensive liver metastases on CT scan. A biopsy of the liver metastases has come back with small cell cancer most consistent with lung primary. A CT scan of the chest showed a pulmonary nodule consistent with new cancer. Oncology was consulted and given his poor functional status he was deemed too ill to tolerate even palliative chemotherapy. Dr. Bishop gave him a possible life expectancy of 4-6 weeks. Hospice was consulted and has kindly agreed to accept him in transfer to hospice house. His main complaint has been abdominal pain and constipation. At the time of discharge she is stable but appears severely chronically ill. Total Time: 1 hour - Physical Exam Vital Signs: Last Vital Signs Temp 97.1 F L 08/23/16 14:40 Pulse 109 08/23/16 14:40 Resp 19 08/23/16 14:40 BP 142/85 08/23/16 14:40 Pulse Ox 96 08/23/16 14:40 Oxygen Pulse Oxygen Saturation 96 O2 Device Room Air Oxygen Flow Rate Fraction of Inspired Oxygen ( FIO2) Constitutional: No apparent distress, Alert. negative: Well nourished, Well appearing Oriented to: Time, Person, Place - HEENT Head: Normal Eye: Conjunctival Injection (PERRL: EOMI), Scleral Icterus Oropharynx: Membranes Dry. negative: Exudate, Red Tympanic Membrane: Dull ENT EAC: Cerumen Nose: negative: Bleeding, Congestion, Discharge, Deformity - Respiratory/Cardiovascular Respiratory: Diminished - GI Auscultation: Normal Palpation: Enlarged liver, Enlarged spleen, Fluid Wave Tenderness: Non tender Jewell's Sign: Negative Rectal Exam: Heme positive stool Stool: Blood streaked - Musculoskeletal Back: Normal, No Palpable Step-off Extremities: Clubbing, Edema (L foot & ankle). negative: Cyanosis - Integumentary Skin: Dry, Jaundice Lymphatics: Normal. negative: Adenopathy - Neurologic Memory Impaired: Short-term Cerebellar: Normal Mood Description: Normal, Appropriate, Calm Thought: Coherent Perception: Normal
[2016-08-23] MEDS ORDERED: MORPHINE 2 MG/ML INJECTION IV PRN (19:00)
== END 2016-08-23 18:00 | disposition hospice, inpatient (51) | DRG 436 ==
LOC: ED 10:55 → MPS3 16:27
PROVIDERS: ADMIT Family Medicine; ATTEND Hospitalist
PROC: 30233K1 Transfusion of Nonautologous Frozen Plasma into Peripheral Vein, Percutaneous Approach (ICD-10-PCS; principal; 2016-08-18)
PROC: 30233L1 Transfusion of Nonautologous Fresh Plasma into Peripheral Vein, Percutaneous Approach (ICD-10-PCS; 2016-08-18)
PROC: 0FB03ZX Excision of Liver, Percutaneous Approach, Diagnostic (ICD-10-PCS; 2016-08-19)
DX: C78.7 Secondary malignant neoplasm of liver and intrahepatic bile duct (principal); C7B.8 Other secondary neuroendocrine tumors; D68.9 Coagulation defect, unspecified; I48.91 Unspecified atrial fibrillation; C34.90 Malignant neoplasm of unspecified part of unspecified bronchus or lung; R17 Unspecified jaundice; R16.0 Hepatomegaly, not elsewhere classified; E11.9 Type 2 diabetes mellitus without complications; R74.8 Abnormal levels of other serum enzymes; I67.9 Cerebrovascular disease, unspecified; I10 Essential (primary) hypertension; E78.00 Pure hypercholesterolemia, unspecified; J44.9 Chronic obstructive pulmonary disease, unspecified; Z86.73 Personal history of transient ischemic attack (TIA), and cerebral infarction without residual deficits; Z79.84 Long term (current) use of oral hypoglycemic drugs; F17.210 Nicotine dependence, cigarettes, uncomplicated; Z66 Do not resuscitate; K59.00 Constipation, unspecified; B85.0 Pediculosis due to Pediculus humanus capitis; Z51.5 Encounter for palliative care; T80.89XA Other complications following infusion, transfusion and therapeutic injection, initial encounter; Z79.02 Long term (current) use of antithrombotics/antiplatelets; Y84.8 Other medical procedures as the cause of abnormal reaction of the patient, or of later complication, without mention of misadventure at the time of the procedure; Z79.899 Other long term (current) drug therapy
CPT/HCPCS: 36415; 47000; 71010; 71260; 74177; 76942; 80053; 80074; 81001; 82105; 82140; 82248; 82272; 82378; 82550; 82962; 83605; 83690; 83735; 84484; 85007; 85025; 85027; 85610; 85730; 86301; 86850; 86900; 86901; 87040; 93005; 96360; 99223; 99285; 99406; A4216; A9698; J1100; J1200; J2250; J2270; J2310; J3010; J3430; J3490; J7030; P9059